=== PATIENT | female | born 1935 | race Caucasian/White ===

== ENCOUNTER 2017-04-20 20:07 | Observation (INO) ==
[2017-04-20] MEDS ORDERED: 0.9 % Sodium Chloride 1,000 ML IVC ONE (20:43)
[2017-04-20] MEDS ORDERED: Ondansetron 4 MG/2 ML VIAL IVP ONE (20:44)
[2017-04-20] MEDS ORDERED: *HR* Morphine 2 MG/ML SYRINGE IVP ONE (20:45)
--- NOTE | 2017-04-20 20:54 | Emergency Department Note ---
Disposition Clinical Impression: Nausea Acute cystitis Qualifiers: Hematuria presence: with hematuria Qualified Code(s): N30.01 - Acute cystitis with hematuria Headache Qualifiers: Headache type: unspecified Headache chronicity pattern: acute headache Intractability: not intractable Qualified Code(s): R51 - Headache Disposition: Admitted As Inpatient Condition: Good Abdominal Pain HPI - General Chief Complaint: ED Abdominal Pain Stated Complaint: abdominal pain Time Seen by Provider: 04/20/17 20:12 Source: patient, EMS Nursing Notes Reviewed: Yes Vital Signs Reviewed: Yes - History of Present Illness HPI Narrative: 81-year-old female presents to the emergency department with concern for urinary tract infection as she consistently has them. However, she also states that she is having worsening left lower quadrant abdominal pain that she has never had before with these. Patient states that she has been feeling chills all throughout. Patient is also reporting some nausea. Patient denies any previous kidney stones. Patient also denies having diverticulitis. Patient reports some vaginal bleeding. Pain Scale: 8 - Related Data Home Medications Medication Instructions Recorded Confirmed Albuterol Sulfate [Proair Hfa] 2 puff IH Q4H PRN 01/31/16 01/31/16 Cholecalciferol (D-3) [Vitamin D] 2,000 unit PO DAILY 01/31/16 01/31/16 Lisinopril [Zestril] 40 mg PO DAILY 01/31/16 01/31/16 Metoprolol [Lopressor] 50 mg PO BID 01/31/16 01/31/16 Quetiapine Fumarate [Seroquel] 50 mg PO HS 01/31/16 01/31/16 amLODIPine [Norvasc] 5 mg PO DAILY 01/31/16 01/31/16 clonazePAM [Klonopin] 0.25 - 0.5 mg PO TID 01/31/16 01/31/16 traMADol [Ultram] 50 mg PO TID PRN 01/31/16 01/31/16 Previous Rx's Medication Instructions Recorded Ciprofloxacin HCl [Cipro] 500 mg PO BID #8 tab 02/02/16 metroNIDAZOLE [Flagyl] 500 mg PO TID #12 tablet 02/02/16 predniSONE [PredniSONE] 10 mg PO DAILY #35 tablet 02/02/16 Ciprofloxacin HCl [Cipro] 500 mg PO BID #14 tab 02/13/16 Omeprazole [PriLOSEC] 20 mg PO DAILY #30 capsule. 02/13/16 Oxycodone HCl/Acetaminophen 1 each PO Q4HR #10 tablet 02/13/16 [Percocet 5-325 mg Tablet] Sucralfate [Carafate] 1 gm PO QIDAC #20 tablet 02/13/16 metroNIDAZOLE [Flagyl] 500 mg PO TID #21 tablet 02/13/16 Hydrocodone/Acetaminophen [[place]ley 1 tab PO Q4H PRN #15 tab 02/14/16 5-325 Tablet] Ciprofloxacin [Cipro] 500 mg PO BID #10 tablet 02/09/17 Ondansetron [Zofran] 8 mg PO Q8HR #9 tablet 02/09/17 Allergies Allergy/AdvReac Type Severity Reaction Status Date / Time codeine Allergy See Verified 01/29/16 23:21 Comments diazepam [From Valium] Allergy See Verified 02/09/17 14:18 Comments Penicillins Allergy See Verified 01/29/16 23:21 Comments Sulfa (Sulfonamide Allergy See Verified 01/29/16 23:21 Antibiotics) Comments diphenhydramine AdvReac Vomiting Verified 02/09/17 14:18 [From Benadryl] All systems ED: reviewed and negative except as stated. Review of Systems: As Per HPI Constitutional: Reports: chills. Denies: fever Cardiovascular: Denies: chest pain Respiratory: Denies: cough, dyspnea Gastrointestinal: Reports: abdominal pain, nausea. Denies: vomiting Genitourinary: Reports: urgency, dysuria, frequency, other (Vaginal bleeding) Abdominal Pain PMH - Past Medical History Medical history: Reports: aortic aneurysm, arthritis, coronary artery disease, diabetes, GERD, GI bleed, hyperlipidemia, hypertension, osteoporosis Female Surgical History: Reports: non-contributory Psychiatric history: Reports: anxiety, depression, panic disorder, other - Social History Smoking status: Never smoker Alcohol use: Reports: none Drug use: Reports: none Physical Exam CONSTITUTIONAL: Alert and oriented X3, well-nourished, 81-year-old female that is well appearing, in no apparent distress HEAD: Normocephalic; atraumatic. EYES: PERRL, no scleral icterus. NOSE: The nose is normal in appearance without rhinorrhea RESP: Normal chest excursion with respiration; breath sounds clear and equal bilaterally; no wheezes, rhonchi, or rales CARD: Regular rhythm, without murmurs, rub or gallop ABD: Non-distended; tenderness in the suprapubic region as well as left lower quadrant, soft,without rigidity, rebound or guarding SKIN: Normal for age and race; warm and dry; no apparent lesions - General General appearance: alert, in no apparent distress Course Vital Signs Temperature 98.0 F 04/20/17 20:11 Pulse Rate 77 04/20/17 20:11 Respiratory Rate 16 04/20/17 20:11 Blood Pressure 170/96 04/20/17 20:11 O2 Sat by Pulse Oximetry 96 04/20/17 20:11 Temperature 98.0 F 04/20/17 20:11 Pulse Rate 77 04/20/17 20:11 Respiratory Rate 14 04/21/17 01:32 Blood Pressure 151/94 04/21/17 01:32 O2 Sat by Pulse Oximetry 96 04/20/17 20:11 Oxygen Delivery Oxygen Delivery Room Air Abdominal Pain - MDM Narrative Medical decision making narrative: 81-year-old female this emergency department with concern for urinary tract infection as well as possible diverticulitis as she has suprapubic tenderness as well as left lower quadrant tenderness. Urinalysis reveals positive leukocyte esterase as well as nitrites and hematuria. We are also obtaining a CT scan of the abdomen and pelvis is very concerned that this may be more than a urinary tract infection. Patient is being given analgesia and Zofran for nausea here in the emergency department. She will also be administered a liter of normal saline. Patient is also complaining of headache. This is an 81-year- old female with no known history of having headaches. We obtained a CT scan of the head without contrast. Urinalysis reveals evidence of urinary tract infection. We have given the patient a gram of Versed here in the emergency department as well as a liter of normal saline. We administered migraine cocktail with Reglan and Benadryl for her headache. This seemed to resolve the symptoms. Admission was offered to this patient as she is elderly with a urinary tract infection and clinically, the patient appears ill. There is concern for possible further deterioration. CT of the head is pending at time of admission. I discussed plan for admission with the family and patient at bedside. They agreed with the plan for admission. Abdomen/Pelvis CT 04/20/17 20:43 IMPRESSION: 1. No acute abdominopelvic abnormality. 2. Sigmoid diverticulosis. No evidence of acute diverticulitis. D/ / Lyndon Reynolds MD / Lyndon Reynolds MD Interpreting Provider: Lyndon Reynolds MD Vital Signs Temperature 98.0 F 04/20/17 20:11 Pulse Rate 77 04/20/17 20:11 Respiratory Rate 16 04/20/17 20:11 Blood Pressure 170/96 04/20/17 20:11 O2 Sat by Pulse Oximetry 96 04/20/17 20:11 Temperature 98.0 F 04/20/17 20:11 Pulse Rate 77 04/20/17 20:11 Respiratory Rate 14 04/21/17 01:32 Blood Pressure 151/94 04/21/17 01:32 O2 Sat by Pulse Oximetry 96 04/20/17 20:11 Oxygen Delivery Oxygen Delivery Room Air - Lab Data Result diagrams: 04/20/17 21:16 04/20/17 21:16 Lab Results 04/20/17 04/20/17 04/20/17 Range/Units 20:22 21:16 21:16 WBC 6.4 (4.3-11.1) K/mcL RBC 4.69 (3.82-4.97) M/mcL Hgb 14.2 (11.5-15.4) g/dL Hct 42.6 (35.3-44.9) % MCV 90.8 (83.0-100.0) fL MCH 30.3 (28.0-33.3) pg MCHC 33.3 (31.6-35.5) g/dL RDW 13.1 (11.5-14.5) % Plt Count 191 (140-400) K/mcL MPV 9.5 (9.4-12.4) fL Immature Gran % 0.2 (0-4) % Seg Neutrophils % 65.5 % Lymphocytes % 27.1 % Monocytes % 5.3 % Eosinophils % 1.4 % Basophils % 0.5 % Neutrophils # 4.2 (1.6-8.9) K/mcL Lymphocytes # 1.7 (0.6-4.6) K/mcL Monocytes # 0.3 (0.0-1.3) K/mcL Eosinophils # 0.1 (0.0-0.6) K/mcL Basophils # 0.0 (0.0-0.2) K/mcL Sodium 134 L (136-145) mEq/L Potassium 4.0 (3.5-4.5) mEq/L Chloride 99 (98-109) mEq/L Carbon Dioxide 22 (19-29) mEq/L BUN 8 (7-20) mg/dL Creatinine 0.79 (0.57-1.11) mg/dL Est GFR ( Amer) > 60 (> 60) Est GFR (Non-Af Amer) > 60 (> 60) BUN/Creatinine Ratio 10 (6-26) Glucose 107 H (70-99) mg/dL Calculated Osmolality 277 L (280-300) Calcium 10.0 (8.6-10.8) mg/dL Total Bilirubin 0.5 (0.2-1.2) mg/dL AST 29 (5-34) Units/L ALT 20 (0-55) Units/L Alkaline Phosphatase 83 (38-126) Units/L Serum Total Protein 8.3 (6.0-8.3) g/dL Albumin 4.1 (3.5-5.0) g/dL Globulin 4.2 H (2.4-3.5) g/dL Albumin/Globulin Ratio 1.0 L (1.1-2.2) Lipase 42 (8-78) Units/L Urine Color Dark Yellow (Yellow) Urine Clarity Clear (Clear) Urine pH 7.0 (5.0-8.0) pH Units Ur Specific [place] 1.007 L (1.010-1.025) Urine Protein Negative (Neg-Trace) mg/dL Urine Glucose (UA) Normal (Normal) mg/dL Urine Ketones Negative (Negative) mg/dL Urine Blood Negative (Negative) Urine Nitrite Positive A (Negative) Urine Bilirubin Negative (Negative) Urine Urobilinogen Normal (Normal) mg/dL Ur Leukocyte Esterase Trace H (Negative) Urine Microscopic RBC 0-3 (0-3) per hpf Urine Microscopic WBC 5-15 H (0-3) per hpf Ur Squamous Epith Cells Few (None-Few) per lpf Urine Bacteria None Seen (None-Few) per hpf Hyaline Casts None Seen (None-Few) per lpf Ur Culture Indicated? YES A (NO) Attestation Statement - Attestation Attestation: I examined this patient and my medical decision-making was reviewed with the Resident Physician. I agree with the documented findings, disposition and treatment plan as described except to the extent set forth below. Abdominal pain , headache, had a cocktail given. CT scan is pending. No focal neurological deficits. CT of the abdomen is without acute findings. She does have nausea and ongoing abdominal pain. Given the findings of nitrite positive urine it would proceed with admission for evaluation of urinary tract infection and treatment with ceftriaxone.
[2017-04-20 21:01] LABS: Bilirubin,Urine Negative (Negative); Blood,Urine Negative (Negative); Clarity,Urine Clear (Clear); Glucose,Urine (UA) Normal (Normal); Ketones,Urine Negative (Negative); Leukocyte Esterase,Urine Trace (Negative); Nitrite,Urine Positive (Negative); Protein,Urine Negative (Neg-Trace); Specific Gravity,Urine 1.007 (1.010-1.025); Urobilinogen,Urine Normal (Normal)
[2017-04-20 21:03] LABS: Bacteria,Urine None Seen per hpf (None-Few); Hyaline Casts,Urine None Seen per lpf (None-Few); RBC,Urine 0-3 per hpf (0-3); Squamous Epithelial Cell,Urine Few per lpf (None-Few)
[2017-04-20 21:05] LABS: Color,Urine Dark Yellow (Yellow)
[2017-04-20 21:28] LABS: Basophils % 0.5 %; Eosinophils # 0.1 K/mcL (0.0-0.6); Eosinophils % 1.4 %; Hematocrit 42.6 % (35.3-44.9); Hemoglobin 14.2 g/dL (11.5-15.4); Immature Granulocytes % 0.2 % (0-4); Lymphocytes # 1.7 K/mcL (0.6-4.6); Lymphocytes % 27.1 %; Mean Corpuscular HGB Conc 33.3 g/dL (31.6-35.5); Mean Corpuscular Hemoglobin 30.3 pg (28.0-33.3); Mean Corpuscular Volume 90.8 fL (83.0-100.0); Mean Platelet Volume 9.5 fL (9.4-12.4); Monocytes # 0.3 K/mcL (0.0-1.3); Monocytes % 5.3 %; Neutrophils # 4.2 K/mcL (1.6-8.9); Platelet Count 191 K/mcL (140-400); Red Blood Count 4.69 M/mcL (3.82-4.97); Red Cell Distribution Width 13.1 % (11.5-14.5); Segmented Neutrophils % 65.5 %
[2017-04-20] MEDS ORDERED: cefTRIAXone 1,000 MG in Water for inj. (sterile) 10 ML IVP ONE (22:16)
[2017-04-20 23:04] LABS: Alanine Aminotransferase 20 Units/L (0-55); Albumin 4.1 g/dL (3.5-5.0); Alkaline Phosphatase 83 Units/L (38-126); Aspartate Amino Transferase 29 Units/L (5-34); BUN/Creatinine Ratio 10 (6-26); Bilirubin,Total 0.5 mg/dL (0.2-1.2); Blood Urea Nitrogen 8 mg/dL (7-20); Carbon Dioxide 22 mEq/L (19-29); Chloride 99 mEq/L (98-109); Globulin 4.2 g/dL (2.4-3.5); Glucose 107 mg/dL (70-99); Lipase 42 Units/L (8-78); Osmolality,Calculated 277 (280-300); Sodium 134 mEq/L (136-145); Total Protein 8.3 g/dL (6.0-8.3); eGFR For African Americans > 60 (> 60); eGFR For Non-African Americans > 60 (> 60)
[2017-04-21] MEDS ORDERED: Metoclopramide 10 MG/2 ML VIAL IVP ONE (00:24)
[2017-04-21] MEDS ORDERED: traMADol 50 MG TABLET PO PRN (03:03)
--- NOTE | 2017-04-21 03:18 | Internal Med History&Physical ---
Date of Encounter: 04/21/17 Time of Encounter: 03:16 Assessment and Plan (1) GERD (gastroesophageal reflux disease) Current visit: Yes Status: Acute We will start PPI. She reports GERD symptoms including heartburn and upper abdominal pain. Qualifiers: Esophagitis presence: without esophagitis Qualified Code(s): K21.9 - Gastro -esophageal reflux disease without esophagitis (2) DVT prophylaxis Current visit: Yes Status: Acute Encourage early ambulation. (3) Acute cystitis Current visit: Yes Status: Acute Urinalysis positive for nitrite and leukocyte esterase. She has typical symptoms of cystitis. We will treat her with ceftriaxone. Follow-up urine culture and sensitivity and adjust antibiotic therapy accordingly. Qualifiers: Hematuria presence: without hematuria Qualified Code(s): N30.00 - Acute cystitis without hematuria (4) Hypertension Current visit: No Status: Chronic Continue with Norvasc. Qualifiers: Hypertension type: essential hypertension Qualified Code(s): I10 - Essential (primary) hypertension Internal Medicine - H&P: HPI Chief complaint: Abdominal pain Admitted From: Home Plans for Post Hospital Care: Home History of present illness: Ms. Moreno is a 81 year old female with past medical history significant for GERD , anxiety and depression who presented to the hospital for lower abdominal pain and dysuria. She has been having several days of abdominal pain however today she noticed severe dysuria described as burning with urination and lower abdominal pain that has progressively gotten worse. Reports associated chills, no aggravating or alleviating factors. Denies subjective fevers. Reports nausea, no vomiting. A 10 point review of systems was negative except as above Past surgical history: Carpal tunnel repair Family history: Patient's father suffered with coronary artery disease, patient' s mother suffered with diabetes Social history: Patient lives at home with her . She never smoked. Denies alcohol or drug use. Past Med Surg Social Fam HX - Past Medical History Medical history: aortic aneurysm, arthritis, coronary artery disease, diabetes, GERD, GI bleed, hyperlipidemia, hypertension, osteoporosis Psychiatric history: anxiety, depression, panic disorder, other - Past Surgical History Surgical History: orthopedic, other, other - Social History Smoking Status: Never smoker Smokeless Tobacco Status: No Alcohol use: none Drug use: none - Family History Mother Living Status: Age at : 75 Cause of : Heart Hx Family Cardiac Disorders: Yes Hx Family Endocrine Disorder: Yes (DM) Father Living Status: Still Living Age at : 84 Cause of : Heart Hx Family Cardiac Disorders: Yes (CABG, Vavle replacement, HTN) Internal Medicine - H&P: Meds Cholecalciferol (D-3) [Vitamin D] 2,000 unit PO DAILY 01/31/16 [History] Lisinopril [Zestril] 40 mg PO DAILY 01/31/16 [History] Metoprolol [Lopressor] 50 mg PO BID 01/31/16 [History] Quetiapine Fumarate [Seroquel] 50 mg PO HS 01/31/16 [History] amLODIPine [Norvasc] 5 mg PO DAILY 01/31/16 [History] clonazePAM [Klonopin] 0.25 - 0.5 mg PO TID 01/31/16 [History] traMADol [Ultram] 50 mg PO TID PRN 01/31/16 [History] Omeprazole [PriLOSEC] 20 mg PO DAILY #30 capsule. 02/13/16 [Rx] Oxycodone HCl/Acetaminophen [Percocet 5-325 mg Tablet] 1 each PO Q4HR #10 tablet 02/13/16 [Rx] Sucralfate [Carafate] 1 gm PO QIDAC #20 tablet 02/13/16 [Rx] Ondansetron [Zofran] 8 mg PO Q8HR #9 tablet 02/09/17 [Rx] 3 Allergy/AdvReac Type Severity Reaction Status Date / Time codeine Allergy See Verified 01/29/16 23:21 Comments diazepam [From Valium] Allergy See Verified 02/09/17 14:18 Comments Penicillins Allergy See Verified 01/29/16 23:21 Comments Sulfa (Sulfonamide Allergy See Verified 01/29/16 23:21 Antibiotics) Comments diphenhydramine AdvReac Vomiting Verified 02/09/17 14:18 [From Benadryl] All Systems PM: A 10-system review of systems was performed and is negative for pertinent findings except as documented above in the HPI. - Constitutional Vitals: Temp Pulse Resp BP Pulse Ox 98.0 F 77 14 151/94 96 04/20/17 20:11 04/20/17 20:11 04/21/17 01:32 04/21/17 01:32 04/20/17 20:11 General appearance: Present: A&O X 3, no acute distress - Eye Eye exam: Present: PERRL, conjuntiva pink, sclera anicteric Pupils: Present: PERRL - Respiratory Respiratory exam: Present: CTAB. Absent: accessory muscle use, rales, rhonchi, wheezes - Cardiovascular Cardiovascular exam: Present: RRR, +S1, +S2. Absent: diastolic murmur, gallop, rubs, systolic murmur - GI/Abdominal GI/Abdominal exam: Present: normal bowel sounds, soft, no peritoneal signs. Absent: distended, tenderness - Extremities Exam Extremities exam: Present: warm, radial pulses palpable and symmetrical. Absent : calf tenderness, cyanotic, pedal edema - Neurological Exam Neurological exam: Present: CN II-XII intact, oriented X3, no focal deficits. Absent: pronater drift, facial droop, speech deficit - Skin Skin exam: Present: dry, intact Internal Med - H&P Results - Labs CBC & Chem 7: 04/20/17 21:16 04/20/17 21:16
[2017-04-21] MEDS ORDERED: Acetaminophen 325 MG TABLET PO PRN (03:25)
[2017-04-21] MEDS ORDERED: Ondansetron 4 MG/2 ML VIAL IVP PRN (03:25)
[2017-04-21] MEDS ORDERED: Naloxone 0.4 MG/ML INJ IVP PRN (03:25)
[2017-04-21] MEDS: *HR* OxyCODONE/APAP 5/325 TABLET PO SCH ×5 (03:31→21:09)
[2017-04-21] MEDS: Sucralfate 1 GM TABLET PO SCH ×4 (07:30→21:10)
[2017-04-21] MEDS: amLODIPine 5 MG TABLET PO SCH (10:29)
[2017-04-21] MEDS: clonazePAM 0.5 MG TABLET PO SCH ×3 (10:30→21:09)
[2017-04-21] MEDS: cefTRIAXone 1,000 MG in Water for inj. (sterile) 10 ML IVP SCH (10:31)
[2017-04-21] MEDS: Lisinopril 20 MG TABLET PO SCH (10:34)
[2017-04-21] MEDS ORDERED: GI Cocktail 40 ML EACH PO ONE (20:26)
--- NOTE | 2017-04-22 00:20 | Event Note ---
Date of Encounter: 04/21/17 Time of Encounter: 14:00 Patient seen and examined. She notes that she is still having abdominal pain and suprapubic burning with urination, c/w UTI. She notes she is having dysphagia and sometimes having trouble swallowing solids and liquids. Food feels "stuck" when she eats and sometimes she has to regurgitate the food. Also complains of sour taste in her mouth Vital signs reviewed, unremarkable Gen: NAD, AAOx3 CVS: RRR Lungs:CTAB Abd: Soft, ND, TTP lower quadrants, normoactive bowel sounds Labs reviewed; UA shows c/w UTI. Imaging showed CT abdomen/pelvis with no acute process 1. UTI 2. GERD 3. Dysphagia Plan: - Continue Rocephin, follow-up urine culture - start PPI, give GI cocktail now, Carafate before meals - esophogram - May need to consult GI in AM pending esophogram results.
[2017-04-22] MEDS: *HR* OxyCODONE/APAP 5/325 TABLET PO SCH ×6 (00:29→20:50)
[2017-04-22 03:01] LABS: Basophils % 0.3 %; Eosinophils # 0.1 K/mcL (0.0-0.6); Eosinophils % 2.3 %; Hematocrit 36.9 % (35.3-44.9); Lymphocytes # 1.8 K/mcL (0.6-4.6); Lymphocytes % 45.2 %; Mean Corpuscular HGB Conc 32.5 g/dL (31.6-35.5); Mean Corpuscular Hemoglobin 30.2 pg (28.0-33.3); Mean Corpuscular Volume 92.7 fL (83.0-100.0); Mean Platelet Volume 9.3 fL (9.4-12.4); Monocytes # 0.3 K/mcL (0.0-1.3); Monocytes % 6.9 %; Neutrophils # 1.8 K/mcL (1.6-8.9); Platelet Count 175 K/mcL (140-400); Red Blood Count 3.98 M/mcL (3.82-4.97); Red Cell Distribution Width 13.5 % (11.5-14.5); Segmented Neutrophils % 45.3 %
[2017-04-22 03:24] LABS: Calcium 8.9 mg/dL (8.6-10.8); Potassium 3.7 mEq/L (3.5-4.5)
[2017-04-22] MEDS: clonazePAM 0.5 MG TABLET PO SCH ×3 (09:18→21:55)
[2017-04-22] MEDS: Sucralfate 1 GM TABLET PO SCH ×4 (09:19→21:55)
[2017-04-22] MEDS: cefTRIAXone 1,000 MG in Water for inj. (sterile) 10 ML IVP SCH (09:19)
[2017-04-22] MEDS: amLODIPine 5 MG TABLET PO SCH (09:19)
[2017-04-22] MEDS: Lisinopril 20 MG TABLET PO SCH (09:19)
[2017-04-22] MEDS: *HR* Morphine 2 MG/ML SYRINGE IVP PRN (20:54)
[2017-04-23] MEDS: *HR* OxyCODONE/APAP 5/325 TABLET PO SCH ×6 (00:28→23:09)
[2017-04-23] MEDS: Temazepam 15 MG CAPSULE PO PRN ×2 (02:10→23:08)
--- NOTE | 2017-04-23 05:09 | Internal Med Progress Note ---
Date of Encounter: 04/22/17 Time of Encounter: 10:07 - Assessment and plan (1) Dysphagia Current Visit: Yes Status: Acute Assessment and plan: Follow-up swallow study *Consult GI in AM Qualifiers: Dysphagia type: unspecified Qualified Code(s): R13.10 - Dysphagia, unspecified (2) UTI (urinary tract infection) Current Visit: Yes Status: Acute Assessment and plan: Continue Rocephin, follow-up cultures. Qualifiers: Urinary tract infection type: acute cystitis Hematuria presence: without hematuria Qualified Code(s): N30.00 - Acute cystitis without hematuria (3) Acute generalized abdominal pain Current Visit: No Status: Acute Assessment and plan: Likely GERD but patient states its generalized. (4) Hypertension Current Visit: No Status: Chronic Assessment and plan: Norvasc Qualifiers: Hypertension type: essential hypertension Qualified Code(s): I10 - Essential (primary) hypertension (5) Acute cystitis Current Visit: Yes Status: Acute Qualifiers: Hematuria presence: without hematuria Qualified Code(s): N30.00 - Acute cystitis without hematuria (6) GERD (gastroesophageal reflux disease) Current Visit: Yes Status: Acute Assessment and plan: Ppi, Qualifiers: Esophagitis presence: without esophagitis Qualified Code(s): K21.9 - Gastro -esophageal reflux disease without esophagitis - Subjective Interval history: No acute events overnight. Dysuria improved. Epigastric pain peristent, had somehwat relief with Carafate. Denies fevers/chills, diarrhea/constipation. - Constitutional Vitals: Temp Pulse Resp BP Pulse Ox 99.0 F 72 17 128/72 94 04/22/17 23:07 04/22/17 23:07 04/22/17 23:07 04/22/17 23:07 04/22/17 23:07 General appearance: Present: A&O X 3, no acute distress Exam: - Eye Eye exam: Present: PERRL, conjuntiva pink, sclera anicteric Pupils: Present: PERRL - Respiratory Respiratory exam: Present: CTAB. Absent: accessory muscle use, rales, rhonchi, wheezes - Cardiovascular Cardiovascular exam: Present: RRR, +S1, +S2. Absent: diastolic murmur, gallop, rubs, systolic murmur - GI/Abdominal GI/Abdominal exam: Present: normal bowel sounds, soft, no peritoneal signs. Absent: distended, tenderness - Extremities Exam Extremities exam: Present: warm, radial pulses palpable and symmetrical. Absent : calf tenderness, cyanotic, pedal edema - Neurological Exam Neurological exam: Present: CN II-XII intact, oriented X3, no focal deficits. Absent: pronater drift, facial droop, speech deficit - Skin Skin exam: Present: dry, intact Internal Medicine: Result - Labs CBC & Chem 7: 04/22/17 02:51 04/22/17 02:51 - Impressions Impressions Barium Swallow X-Ray 04/22/17 08:00 IMPRESSION: 1. Significant gastroesophageal reflux to the thoracic inlet. 2. Tertiary esophageal contractions suggests esophageal dysmotility. D/ / Hugo Orourke MD / Hugo Orourke MD Interpreting Provider: Hugo Orourke MD Consult Discharge Plan - Plan Referrals: Cindy Benitez DO [Primary Care Provider] -
[2017-04-23] MEDS: cefTRIAXone 1,000 MG in Water for inj. (sterile) 10 ML IVP SCH (11:01)
[2017-04-23] MEDS: *HR* Morphine 2 MG/ML SYRINGE IVP PRN (11:02)
[2017-04-23] MEDS: amLODIPine 5 MG TABLET PO SCH (11:03)
[2017-04-23] MEDS: Lisinopril 20 MG TABLET PO SCH (11:03)
[2017-04-23] MEDS: clonazePAM 0.5 MG TABLET PO SCH ×3 (11:03→20:47)
[2017-04-23] MEDS: Sucralfate 1 GM TABLET PO SCH ×4 (11:03→20:47)
--- NOTE | 2017-04-23 11:13 | Gastroenterology Consult Note ---
Date of Encounter: 04/23/17 Time of Encounter: 10:30 - Assessment and plan (1) Dysphagia Current Visit: Yes Status: Acute Assessment and plan: Barium swallow study shows significant gastroesophageal reflux to the thoracic inlet and tertiary esophageal contractions suggestive of esophageal dysmotility. Plan for EGD with possible dilation. If not improved after EGD, consider esophageal manometry as an outpatient. Qualifiers: Dysphagia type: unspecified Qualified Code(s): R13.10 - Dysphagia, unspecified (2) GERD (gastroesophageal reflux disease) Current Visit: Yes Status: Acute Assessment and plan: Continue PPI and plan for EGD today to r/o esophagitis, gastritis, duodenitis, PUD, MW tear, or AVM. Keep pt NPO for now. Qualifiers: Esophagitis presence: without esophagitis Qualified Code(s): K21.9 - Gastro -esophageal reflux disease without esophagitis (3) Sigmoid diverticulosis Current Visit: No Status: Chronic Assessment and plan: Recommend daily fiber supplement. - Time Spent With Patient Total time spent is greater than 50% in coordination of care (as documented) at patient's floor/unit and/or counseling patient: GI History of Present Illness - Data of Consult Patient: new to practice Consult date: 04/23/17 Requesting Physician: Martha Conroy CNP - Consult Narrative Reason for consult: Dysphagia, abdominal pain History of present illness: Ms. Moreno is a 81 year old female with PMHx of GERD, GI bleed, aortic aneurysm, CAD, DM, HLD, HTN, who presented with c/o abdominal pain for several days and dysuria. She states the abdominal pain progressively worsened. She has history of GERD, and was complaining of epigastric pain as well as dysphagia with solids and liquids. Food feels "stuck" when she eats and sometimes she has to regurgitate the food. Barium swallow study shows significant gastroesophageal reflux to the thoracic inlet and tertiary esophageal contractions suggestive of esophageal dysmotility. CT A/P with sigmoid diverticulosis otherwise unremarkable. UA c/w UTI and she was started on Rocephin. Procedures: EGD 12/29/2008 Dr. Jarrett: Reflux esophagitis, negative for Gardner's. NSAIDs: None Anticoagulation: None Past Med Surg Social Fam HX - Past Medical History Medical history: aortic aneurysm, arthritis, coronary artery disease, diabetes, GERD, GI bleed, hyperlipidemia, hypertension, osteoporosis Psychiatric history: anxiety, depression, panic disorder, other - Past Surgical History Surgical History: orthopedic, other, other - Social History Smoking Status: Never smoker Smokeless Tobacco Status: No Alcohol use: none Drug use: none - Family History Mother Living Status: Age at : 75 Cause of : Heart Hx Family Cardiac Disorders: Yes Hx Family Endocrine Disorder: Yes (DM) Father Living Status: Still Living Age at : 84 Cause of : Heart Hx Family Cardiac Disorders: Yes (CABG, Vavle replacement, HTN) - Gastrointestinal Gastrointestinal: Present: as per HPI - Constitutional Constitutional: as per HPI - EENT Eyes: as per HPI Ears: Present: as per HPI Nose, mouth and throat: Present: as per HPI - Cardiovascular Cardiovascular ROS: Present: as per HPI - Respiratory Respiratory IM: Present: as per HPI - Genitourinary Genitourinary: Absent: change in color, Urinary frequency - Neurological ROS Neurological GI: Present: as per HPI - Hematologic/Lymphatic Hematologic/Lymphatic pediatric: Present: as per HPI - Musculoskeletal Musculoskeletal ROS GI: Present: as per HPI - Integumentary Integumentary GI: Present: as per HPI - Psychiatric ROS Psychiatric GI: Present: as per HPI - Endocrine Endocrine IM: Present: as per HPI - Constitutional Vitals: Temp Pulse Resp BP Pulse Ox 98.3 F 63 16 155/72 95 04/23/17 06:44 04/23/17 06:44 04/23/17 06:44 04/23/17 06:44 04/23/17 06:44 General appearance: Present: cooperative, A&O X 3, no acute distress, answers questions appropriately - Head Head exam: Present: atraumatic, normocephalic - Eye Eye exam: Present: normal appearance, sclera anicteric - ENT ENT exam: Present: mucous membranes dry - Neck Neck exam general surgery: Present: normal inspection, trachea midline - Respiratory Respiratory exam: Present: CTAB. Absent: rales, rhonchi - Cardiovascular Cardiovascular exam: Present: RRR, +S1, +S2 - GI/Abdominal GI/Abdominal exam: Present: soft, tenderness (Epigastric and RUQ tenderness with palpation), no peritoneal signs. Absent: distended, firm, guarding - Rectal Rectal exam: Present: deferred - Extremities Exam Extremities exam: Present: warm - Neurological Exam Neurological exam: Present: no focal deficits - Psychiatric Psychiatric exam: Present: normal affect, normal mood - Skin Skin exam: Present: dry, intact, normal color, warm Results - Labs CBC & Chem 7: 04/22/17 02:51 04/22/17 02:51 Labs: Last Result Calcium 8.9 mg/dL (8.6-10.8) 04/22/17 02:51 Entire Visit Hgb 12.0 g/dL (11.5-15.4) D 04/22/17 02:51 Hct 36.9 % (35.3-44.9) 04/22/17 02:51 Total Bilirubin 0.5 mg/dL (0.2-1.2) 04/20/17 21:16 AST 29 Units/L (5-34) 04/20/17 21:16 ALT 20 Units/L (0-55) 04/20/17 21:16 Lipase 42 Units/L (8-78) 04/20/17 21:16 Consult Discharge Plan - Plan Referrals: Cindy Benitez DO [Primary Care Provider] -
--- NOTE | 2017-04-23 12:37 | Anesthesia Evaluation PreOp ---
Date of Encounter: 04/23/17 Time of Encounter: 12:35 - Past History Planned Operation: EGD Cardiac History: HTN, Hyperlipidemia, Other (patient denies CAD) Pulmonary History: Denies Any Significant HX DEBEAKER History: Denies Any Significant HX Other Medical History: GERD, Other (Patient denies Diabetes despite it being listed in chart) Anesthesia History: No Prior Anesthetic Complications, Past Anesthesia (CTR, eye sx, knee scope) Alcohol Use: none Drug use: none Medications and Allergies Cholecalciferol (D-3) [Vitamin D] 2,000 unit PO DAILY 01/31/16 [History] Lisinopril [Zestril] 40 mg PO DAILY 01/31/16 [History] Metoprolol [Lopressor] 50 mg PO BID 01/31/16 [History] Quetiapine Fumarate [Seroquel] 50 mg PO HS 01/31/16 [History] amLODIPine [Norvasc] 5 mg PO DAILY 01/31/16 [History] clonazePAM [Klonopin] 0.25 - 0.5 mg PO TID 01/31/16 [History] traMADol [Ultram] 50 mg PO TID PRN 01/31/16 [History] Omeprazole [PriLOSEC] 20 mg PO DAILY #30 capsule. 02/13/16 [Rx] Atorvastatin Calcium [Lipitor] 20 mg PO DAILY 04/22/17 [History] 3 Allergy/AdvReac Type Severity Reaction Status Date / Time codeine Allergy See Verified 01/29/16 23:21 Comments diazepam [From Valium] Allergy See Verified 02/09/17 14:18 Comments Penicillins Allergy See Verified 01/29/16 23:21 Comments Sulfa (Sulfonamide Allergy See Verified 01/29/16 23:21 Antibiotics) Comments diphenhydramine AdvReac Vomiting Verified 02/09/17 14:18 [From Benadryl] - Meds/Allergy Pre-op Review Medications Reviewed: Yes Allergies Reviewed: Yes Beta Blockers on Current Med List: Yes If Beta Blockers taken, Date/Time (Last Dose taken): 04/22/17 @ 2100 Anesthesia Results - Labs 04/22/17 02:51 04/22/17 02:51 Anesthesia Exam Selected Entries 04/23/17 11:35 Temperature 98.6 F Pulse Rate 76 Respiratory Rate 18 Blood Pressure 113/58 O2 Sat by Pulse Oximetry 91 Weight: 81kg NPO (# of Hours): 8 - HEENT Pupil (Motor): EOMI Mallampati: III Teeth: Poor dentition Oral Opening: Greater than 3 - DEBEAKER LOC: Oriented DEBEAKER Motor: Normal RUE, Normal LUE, Normal RLE, Normal LLE, Normal Face - Cardiac Rhythm: Regular Murmur: None - Pulmonary Breath Sounds: bilateral Clear Respiratory Effort: Symmetrical Anesthesia Assess/Plan ASA Score: 3 Modified Ashu Scale for Level of Consciousness: Cooperative, oriented, and tranquil Anesthetic Plan: MAC Monitoring Plan: Standard Monitors Recovery Plan: Other (agrees to MAC)
[2017-04-23] MEDS ORDERED: *HR* Propofol 200 MG/20 ML VIAL IVP ONE (12:55)
[2017-04-23] MEDS ORDERED: Lidocaine -MPF 2% 2 ML VIAL ONE (13:00)
[2017-04-23] MEDS ORDERED: Nitroglycerin 0.4 MG TAB.SUBL SL PRN (14:45)
[2017-04-23] MEDS ORDERED: *HR* Labetalol 20 MG/4 ML SYRINGE IVP ONE (14:46)
--- NOTE | 2017-04-23 14:46 | Internal Med Progress Note ---
Date of Encounter: 04/23/17 Time of Encounter: 14:42 - Assessment and plan (1) Acute generalized abdominal pain Current Visit: No Status: Acute Assessment and plan: clinically better egd today just returned (2) Hypertension Current Visit: No Status: Chronic Assessment and plan: hypertensive urgency due to med sbeing held for EGD will give labetalol 20 mg now Qualifiers: Hypertension type: essential hypertension Qualified Code(s): I10 - Essential (primary) hypertension (3) Dyslipidemia Current Visit: No Status: Chronic Assessment and plan: chronic (4) Obesity (BMI 30-39.9) Current Visit: No Status: Chronic (5) UTI (urinary tract infection) Current Visit: Yes Status: Acute Assessment and plan: continue antibiotics Qualifiers: Urinary tract infection type: acute cystitis Hematuria presence: without hematuria Qualified Code(s): N30.00 - Acute cystitis without hematuria (6) Chest pain Current Visit: Yes Status: Acute Assessment and plan: chest pain when just returned from Egd ekg no ischemia being given sl nitro will notify GI likely related to EGD doubt perforation but consideration Qualifiers: Chest pain type: other chest pain Qualified Code(s): R07.89 - Other chest pain; R07.8 - Other chest pain - Subjective Interval history: Patient with history of GERD hypertension admitted with lower abdominal pain Patient just came back from EGD and complaining of midsternal chest pain no radiation and no associated sob or sweats ekg no ishemia - Constitutional Vitals: Temp Pulse Resp BP Pulse Ox 97.9 F 85 16 172/92 96 04/23/17 13:56 04/23/17 13:56 04/23/17 13:56 04/23/17 13:56 04/23/17 13:56 General appearance: Present: A&O X 3, no acute distress - Head Head exam: Present: atraumatic, normocephalic - Eye Eye exam: Present: PERRL, conjuntiva pink, sclera anicteric Pupils: Present: PERRL - Neck Neck exam general surgery: Present: supple, trachea midline. Absent: lymphadenopathy - Respiratory Respiratory exam: Present: CTAB. Absent: accessory muscle use, rales, rhonchi, wheezes - Cardiovascular Cardiovascular exam: Present: RRR, +S1, +S2. Absent: diastolic murmur, gallop, rubs, systolic murmur - GI/Abdominal GI/Abdominal exam: Present: normal bowel sounds, soft, no peritoneal signs. Absent: distended, tenderness - Extremities Exam Extremities exam: Present: warm, radial pulses palpable and symmetrical. Absent : calf tenderness, cyanotic, pedal edema Internal Medicine: Result - Labs CBC & Chem 7: 04/22/17 02:51 04/22/17 02:51 Consult Discharge Plan - Plan Referrals: Cindy Benitez DO [Primary Care Provider] -
[2017-04-23] MEDS ORDERED: *HR* Morphine 2 MG/ML SYRINGE IVP ONE (14:57)
[2017-04-23] MEDS ORDERED: *HR* HYDROmorphone 2 MG/ML SYRINGE IVP ONE (15:20)
[2017-04-23] MEDS ORDERED: Ondansetron 4 MG/2 ML VIAL IVP ONE (15:21)
[2017-04-24] MEDS: *HR* OxyCODONE/APAP 5/325 TABLET PO SCH ×3 (00:13→07:43)
[2017-04-24] MEDS: amLODIPine 5 MG TABLET PO SCH (07:44)
[2017-04-24] MEDS: Lisinopril 20 MG TABLET PO SCH (07:44)
[2017-04-24] MEDS: Sucralfate 1 GM TABLET PO SCH (09:11)
[2017-04-24] MEDS: clonazePAM 0.5 MG TABLET PO SCH (09:12)
[2017-04-24] MEDS: cefTRIAXone 1,000 MG in Water for inj. (sterile) 10 ML IVP SCH (09:15)
--- NOTE | 2017-04-24 12:20 | Discharge Summary ---
Date of Encounter: 04/24/17 Time of Encounter: 12:17 - Discharge Diagnosis (1) Acute generalized abdominal pain Priority: Primary Status: Acute Comments: EGD normal (2) Hypertension Priority: Secondary Status: Chronic Qualifiers: Hypertension type: essential hypertension Qualified Code(s): I10 - Essential (primary) hypertension (3) Dyslipidemia Priority: Secondary Status: Chronic Comments: chronic (4) Obesity (BMI 30-39.9) Priority: Secondary Status: Chronic (5) UTI (urinary tract infection) Priority: Secondary Status: Acute Comments: resolving culture no significant growth Qualifiers: Urinary tract infection type: acute cystitis Hematuria presence: without hematuria Qualified Code(s): N30.00 - Acute cystitis without hematuria (6) Chest pain Priority: Secondary Status: Acute Comments: resolved troponin negative ekg normal Qualifiers: Chest pain type: other chest pain Qualified Code(s): R07.89 - Other chest pain; R07.8 - Other chest pain - Discharge Medications Home Medications: Cholecalciferol (D-3) [Vitamin D] 2,000 unit PO DAILY 01/31/16 [History] Lisinopril [Zestril] 40 mg PO DAILY 01/31/16 [History] Metoprolol [Lopressor] 50 mg PO BID 01/31/16 [History] Quetiapine Fumarate [Seroquel] 50 mg PO HS 01/31/16 [History] amLODIPine [Norvasc] 5 mg PO DAILY 01/31/16 [History] clonazePAM [Klonopin] 0.25 - 0.5 mg PO TID 01/31/16 [History] traMADol [Ultram] 50 mg PO TID PRN 01/31/16 [History] Omeprazole [PriLOSEC] 20 mg PO DAILY #30 capsule. 02/13/16 [Rx] Atorvastatin Calcium [Lipitor] 20 mg PO DAILY 04/22/17 [History] Allergies/Adverse Reactions: 3 Allergy/AdvReac Type Severity Reaction Status Date / Time codeine Allergy See Verified 01/29/16 23:21 Comments diazepam [From Valium] Allergy See Verified 02/09/17 14:18 Comments Penicillins Allergy See Verified 01/29/16 23:21 Comments Sulfa (Sulfonamide Allergy See Verified 01/29/16 23:21 Antibiotics) Comments diphenhydramine AdvReac Vomiting Verified 02/09/17 14:18 [From Benadryl] Procedures/tests Complete & Pending: Procedures Performed prior 72 hours Category Date Time Status ECG 12 lead ECG [ECG] Routine Y 04/23/17 14:52 Completed Date of admission: 04/21/17 01:01 Primary care physician: Cindy Benitez DO Consults: 04/23/17 10:45 Consult to Gastroenterology [CONS] Routine Consulting Provider: Mark Landaverde Reason for Consult: Possible GI bleed. Call Completed: No Discharging clinician: Harrison Canas Anticipated date of discharge: 04/24/17 - Patient Status Disposition: Home, Self-Care Overall status at discharge: patient is progressing back to baseline - Discharge Instructions Instructions: Urinary Tract Infection in Women (GEN), Gastroesophageal Reflux Disease (GEN), Upper Gastrointestinal Endoscopy (DC) - Diet and Activity Activity: other Diet: advance to your usual diet Hospital course: Ms. Moreno is a 81 year old female - Time Spent with Patient Total time spent providing and/or coordinating discharge services: - Constitutional Vitals: Temp Pulse Resp BP Pulse Ox 98.1 F 66 16 90/57 95 04/24/17 11:36 04/24/17 11:36 04/24/17 11:36 04/24/17 11:36 04/24/17 11:36 General appearance: Present: A&O X 3, no acute distress
[2017-04-24 12:42] VITALS: BP 135/88
--- NOTE | 2017-04-26 15:49 | Electrocardiograph Report ---
[address] [place], [place] [address] Test Date: 2017-04-23 Pat Name: Christina Moreno Department: 113 Room: [facility] Gender: F Incident Response Coordinator: : 1935 Requested By: Martha Conroy Order Number: [id number] Reading MD: Carlos Manuel Bess Measurements Intervals [place] Rate: 82 P: 95 IA: 160 QRS: 5 QRSD: 90 T: 89 QT: 307 QTc: 346 Interpretive Statements SINUS RHYTHM NONSPECIFIC T-WAVE ABNORMALITY Electronically Signed On 04-26-2017 15:47:29 EST by Carlos Manuel Bess
== END 2017-04-24 12:45 | disposition home or self-care (01) ==
LOC: EMEROO 20:07 → 3BNU 20:07
PROVIDERS: ADMIT Internal Medicine; ATTEND Registered Nurse
PROC: ENDOORB (2017-04-23 14:00)

== ENCOUNTER 2018-02-03 17:42 | Observation (INO) ==
[2018-02-03] MEDS ORDERED: Ondansetron 4 MG/2 ML VIAL IVP ONE (17:55)
--- NOTE | 2018-02-03 18:15 | Emergency Department Note ---
Disposition Clinical Impression: Nausea, Hyponatremia Abdominal pain Qualifiers: Abdominal location: epigastric Qualified Code(s): R10.13 - Epigastric pain UTI (urinary tract infection) Qualifiers: Urinary tract infection type: site unspecified Hematuria presence: with hematuria Qualified Code(s): N39.0 - Urinary tract infection, site not specified Disposition: Admitted As Inpatient Condition: Fair Time of Disposition: 20:34 Abdominal Pain HPI - General Chief Complaint: ED Abdominal Pain Stated Complaint: illness Time Seen by Provider: 02/03/18 17:44 Source: EMS Mode of arrival: EMS Limitations: no limitations Vital Signs Reviewed: Yes - History of Present Illness HPI Narrative: Ms. Moreno is a 82 yo F with a hxo of GERD presents with 3 days of nausea and abdominal pain. She states that the pain is burning in nature, non radiating, she hasn't attempted to resolve the pain with medication but states that "nothing makes it better" She admits to intermittent chills and diaphoresis. She denies vomiting, diarrhea, changes to her bowel and bladder, fevers, CP or SOB. States she has also had several months now of burning in her extremities. States it has been harder for her to get around now because of this burning sensation. Pt Subjective Complaint: abdominal pain Onset (ago): day(s) Consistency: constant Location: epigastric Pain Severity: moderate Pain Scale: 9 Quality: burning Radiation: none Improves with: nothing Worsens with: nothing Associated symptoms: Reports: nausea, chills. Denies: vomiting, diarrhea, fever , constipation, dysuria Treatments prior to arrival: none - Related Data Home Medications Medication Instructions Recorded Confirmed Cholecalciferol (D-3) [Vitamin D] 2,000 unit PO DAILY 01/31/16 02/03/18 Lisinopril [Zestril] 40 mg PO DAILY 01/31/16 02/03/18 Metoprolol [Lopressor] 50 mg PO BID 01/31/16 02/03/18 amLODIPine [Norvasc] 5 mg PO DAILY 01/31/16 02/03/18 clonazePAM [Klonopin] 0.25 - 0.5 mg PO BID PRN 01/31/16 02/03/18 Tramadol HCl [Ultram] 50 mg PO TID PRN 02/03/18 02/03/18 Previous Rx's Medication Instructions Recorded Omeprazole [PriLOSEC] 20 mg PO DAILY #30 capsule. 02/13/16 Allergies Allergy/AdvReac Type Severity Reaction Status Date / Time codeine Allergy See Verified 02/03/18 20:29 Comments diazepam [From Valium] Allergy See Verified 02/03/18 20:29 Comments Penicillins Allergy See Verified 02/03/18 20:29 Comments Sulfa (Sulfonamide Allergy See Verified 02/03/18 20:29 Antibiotics) Comments diphenhydramine AdvReac Vomiting Verified 02/03/18 20:29 [From Benadryl] All systems ED: reviewed and negative except as stated. Constitutional: Reports: chills, weakness, night sweats. Denies: fever Cardiovascular: Denies: chest pain, palpitations, syncope Respiratory: Denies: cough, dyspnea Gastrointestinal: Reports: abdominal pain, nausea. Denies: vomiting, diarrhea, hematemesis, hematochezia Genitourinary: Denies: urgency, dysuria, frequency, hematuria Neurological: Reports: paresthesias (chronic bilateral lower extremity ). Denies: numbness Endocrine: Reports: fatigue Abdominal Pain PMH - Past Medical History Medical history: Reports: aortic aneurysm, arthritis, coronary artery disease, diabetes, GERD, GI bleed, hyperlipidemia, hypertension, osteoporosis Female Surgical History: Reports: orthopedic, other RIG SITE ENGINEER history: Reports: no RIG SITE ENGINEER history Psychiatric history: Reports: anxiety, depression, panic disorder, other - Social History Smoking status: Never smoker Alcohol use: Reports: none Drug use: Reports: none Physical Exam - General Limitations: no limitations General appearance: alert - Head Head exam: atraumatic, normocephalic, normal inspection - Eye Eye exam: Present: EOMI - ENT ENT exam: normal exam, normal oropharynx, mucous membranes moist - Neck Neck exam: Present: normal inspection, full ROM, trachea midline - Chest Chest inspection: Present: normal inspection, symmetric chest wall rise - Respiratory Respiratory exam: Present: normal lung sounds bilaterally - Cardiovascular Cardiovascular exam: Present: regular rate, normal rhythm, normal heart sounds - Abdominal Exam Abdominal exam: Present: soft, Non-Tender. Absent: tenderness, distention, guarding, rebound, rigidity - Extremities Exam Extremities exam: Present: normal inspection, full ROM. Absent: tenderness, pedal edema - Neurological Exam Neurological exam: Present: alert, oriented X3. Absent: motor sensory deficit - Psychiatric Psychiatric exam: Present: normal affect, normal mood - Skin Skin exam: Present: warm, dry, intact, normal color Course Course Narrative: Patient seen and examined. Nausea epigastric pain over the last several days. Abdominal lab work, CT of the abdomen and pelvis ordered. She is somewhat tender upon my exam in the epigastric region. - Reevaluation(s) Reevaluation #1: Patient's lab work shows a hyponatremia. Unsure what this is secondary to. Her glucose is normal. She appears euvolemic on my exam. She denies ever being a smoker and does not have any respiratory symptoms. However a chest x- ray ordered to rule out any large mass. We will admit for workup for hyponatremia. Time: 20:00 Reevaluation #2: I discussed with the hospitalist Dr. Jackson who has accepted patient for admission. Would like a telemetry bed for this patient. Since patient has signs of a possible UTI on urine analysis, we will go ahead and give a dose of Rocephin. Time: 20:32 Vital Signs Temperature 98.4 F 02/03/18 17:45 Pulse Rate 68 02/03/18 17:45 Respiratory Rate 16 02/03/18 17:45 Blood Pressure 180/92 02/03/18 17:45 O2 Sat by Pulse Oximetry 99 02/03/18 17:45 Temperature 97.6 F 02/04/18 19:12 Pulse Rate 86 02/04/18 19:12 Respiratory Rate 16 02/04/18 19:12 Blood Pressure 136/85 02/04/18 19:12 O2 Sat by Pulse Oximetry 97 02/04/18 19:12 Oxygen Delivery Oxygen Delivery Room Air Abdominal Pain - Medical Records Medical records reviewed: Yes I reviewed the patient's medical records. - Lab Data Lab results reviewed: Yes I reviewed the patient's lab results. Result diagrams: 02/03/18 17:55 02/03/18 18:42 Lab Results 02/03/18 02/03/18 02/03/18 Range/Units 17:55 18:21 18:42 WBC 7.2 (4.3-11.1) K/mcL RBC 4.68 (3.82-4.97) M/mcL Hgb 14.1 (11.5-15.4) g/dL Hct 41.3 (35.3-44.9) % MCV 88.2 (83.0-100.0) fL MCH 30.1 (28.0-33.3) pg MCHC 34.1 (31.6-35.5) g/dL RDW 12.6 (11.5-14.5) % Plt Count 228 (140-400) K/mcL MPV 9.4 (9.4-12.4) fL Immature Gran % 0.1 (0-4) % Seg Neutrophils % 70.2 % Lymphocytes % 23.5 % Monocytes % 5.5 % Eosinophils % 0.4 % Basophils % 0.3 % Neutrophils # 5.1 (1.6-8.9) K/mcL Lymphocytes # 1.7 (0.6-4.6) K/mcL Monocytes # 0.4 (0.0-1.3) K/mcL Eosinophils # 0.0 (0.0-0.6) K/mcL Basophils # 0.0 (0.0-0.2) K/mcL Sodium 123 L (136-145) mEq/L Potassium 4.2 (3.5-5.1) mEq/L Chloride 88 L (98-107) mEq/L Carbon Dioxide 26 (23-29) mEq/L BUN 6 L (8-23) mg/dL Creatinine 0.70 (0.60-1.20) mg/dL Est GFR ( Amer) > 60 (> 60) Est GFR (Non-Af Amer) > 60 (> 60) BUN/Creatinine Ratio 9 (6-26) Glucose 120 H (70-105) mg/dL Calculated Osmolality 255 L (280-300) Lactic Acid (0.5-2.2) mmol/L Calcium 10.0 (8.6-10.3) mg/dL Total Bilirubin 0.7 (0.3-1.0) mg/dL Direct Bilirubin 0.2 (0.0-0.2) mg/dL Indirect Bilirubin 0.5 (0.0-1.2) mg/dL AST 23 (13-39) Units/L ALT 20 (7-52) Units/L Alkaline Phosphatase 66 (34-104) Units/L Serum Total Protein 7.5 (6.4-8.9) g/dL Albumin 4.5 (3.5-5.7) g/dL Globulin 3.0 (2.4-3.5) g/dL Albumin/Globulin Ratio 1.5 (1.1-2.2) Lipase 23 (11-82) Units/L Urine Color Yellow (Yellow) Urine Clarity Cloudy A (Clear) Urine pH 7.5 (5.0-8.0) pH Units Ur Specific [place] 1.008 L (1.010-1.025) Urine Protein Trace (Neg-Trace) mg/dL Urine Glucose (UA) Normal (Normal) mg/dL Urine Ketones Negative (Negative) mg/dL Urine Blood Small H (Negative) Urine Nitrite Negative (Negative) Urine Bilirubin Negative (Negative) Urine Urobilinogen Normal (Normal) mg/dL Ur Leukocyte Esterase Large H (Negative) Urine Microscopic RBC 5-15 H (0-3) per hpf Urine Microscopic WBC TNTC H (0-3) per hpf Ur Squamous Epith Cells None Seen (None-Few) per lpf Urine Bacteria Few (None-Few) per hpf Hyaline Casts None Seen (None-Few) per lpf Ur Culture Indicated? YES A (NO) 02/03/18 Range/Units 18:42 WBC (4.3-11.1) K/mcL RBC (3.82-4.97) M/mcL Hgb (11.5-15.4) g/dL Hct (35.3-44.9) % MCV (83.0-100.0) fL MCH (28.0-33.3) pg MCHC (31.6-35.5) g/dL RDW (11.5-14.5) % Plt Count (140-400) K/mcL MPV (9.4-12.4) fL Immature Gran % (0-4) % Seg Neutrophils % % Lymphocytes % % Monocytes % % Eosinophils % % Basophils % % Neutrophils # (1.6-8.9) K/mcL Lymphocytes # (0.6-4.6) K/mcL Monocytes # (0.0-1.3) K/mcL Eosinophils # (0.0-0.6) K/mcL Basophils # (0.0-0.2) K/mcL Sodium (136-145) mEq/L Potassium (3.5-5.1) mEq/L Chloride (98-107) mEq/L Carbon Dioxide (23-29) mEq/L BUN (8-23) mg/dL Creatinine (0.60-1.20) mg/dL Est GFR ( Amer) (> 60) Est GFR (Non-Af Amer) (> 60) BUN/Creatinine Ratio (6-26) Glucose (70-105) mg/dL Calculated Osmolality (280-300) Lactic Acid 1.5 (0.5-2.2) mmol/L Calcium (8.6-10.3) mg/dL Total Bilirubin (0.3-1.0) mg/dL Direct Bilirubin (0.0-0.2) mg/dL Indirect Bilirubin (0.0-1.2) mg/dL AST (13-39) Units/L ALT (7-52) Units/L Alkaline Phosphatase (34-104) Units/L Serum Total Protein (6.4-8.9) g/dL Albumin (3.5-5.7) g/dL Globulin (2.4-3.5) g/dL Albumin/Globulin Ratio (1.1-2.2) Lipase (11-82) Units/L Urine Color (Yellow) Urine Clarity (Clear) Urine pH (5.0-8.0) pH Units Ur Specific [place] (1.010-1.025) Urine Protein (Neg-Trace) mg/dL Urine Glucose (UA) (Normal) mg/dL Urine Ketones (Negative) mg/dL Urine Blood (Negative) Urine Nitrite (Negative) Urine Bilirubin (Negative) Urine Urobilinogen (Normal) mg/dL Ur Leukocyte Esterase (Negative) Urine Microscopic RBC (0-3) per hpf Urine Microscopic WBC (0-3) per hpf Ur Squamous Epith Cells (None-Few) per lpf Urine Bacteria (None-Few) per hpf Hyaline Casts (None-Few) per lpf Ur Culture Indicated? (NO) - Radiology Data Radiology results reviewed: Yes I reviewed the patient's radiology results. Abdomen/Pelvis CT 02/03/18 18:03 IMPRESSION: No acute abdominopelvic abnormality identified. D/ / Timothy Rodriguez MD / Timothy Rodriguez MD Interpreting Provider: Timothy Rodriguez MD Chest X-Ray 02/03/18 19:24 IMPRESSION: No acute process. D/ / Matthew Hernandez MD / Matthew Hernandez MD Interpreting Provider: Matthew Hernandez MD - EKG Data EKG attestation: Yes I reviewed and interpreted this EKG. EKG results narrative: EKG done at 1949 shows normal sinus rhythm with a rate of [address] elevation or depression. Normal axis. Unchanged from prior EKG done 2016.
[2018-02-03 18:46] LABS: Bilirubin,Urine Negative (Negative); Blood,Urine Small (Negative); Clarity,Urine Cloudy (Clear); Color,Urine Yellow (Yellow); Glucose,Urine (UA) Normal (Normal); Ketones,Urine Negative (Negative); Leukocyte Esterase,Urine Large (Negative); Nitrite,Urine Negative (Negative); PH,Urine 7.5 pH Units (5.0-8.0); Protein,Urine Trace mg/dL (Neg-Trace); Specific Gravity,Urine 1.008 (1.010-1.025); Urobilinogen,Urine Normal (Normal)
[2018-02-03 18:50] LABS: Bacteria,Urine Few per hpf (None-Few); Hyaline Casts,Urine None Seen per lpf (None-Few); Squamous Epithelial Cell,Urine None Seen per lpf (None-Few); WBC,Urine TNTC per hpf (0-3)
[2018-02-03 18:58] LABS: Basophils % 0.3 %; Eosinophils % 0.4 %; Hematocrit 41.3 % (35.3-44.9); Hemoglobin 14.1 g/dL (11.5-15.4); Immature Granulocytes % 0.1 % (0-4); Lymphocytes # 1.7 K/mcL (0.6-4.6); Lymphocytes % 23.5 %; Mean Corpuscular HGB Conc 34.1 g/dL (31.6-35.5); Mean Corpuscular Hemoglobin 30.1 pg (28.0-33.3); Mean Corpuscular Volume 88.2 fL (83.0-100.0); Mean Platelet Volume 9.4 fL (9.4-12.4); Monocytes # 0.4 K/mcL (0.0-1.3); Monocytes % 5.5 %; Neutrophils # 5.1 K/mcL (1.6-8.9); Platelet Count 228 K/mcL (140-400); Red Blood Count 4.68 M/mcL (3.82-4.97); Red Cell Distribution Width 12.6 % (11.5-14.5); Segmented Neutrophils % 70.2 %
[2018-02-03] MEDS ORDERED: GI Cocktail 40 ML EACH PO ONE (19:12)
--- NOTE | 2018-02-03 19:12 | Emergency Department Note ---
Disposition Clinical Impression: Abdominal pain, GERD (gastroesophageal reflux disease) Disposition: Still a Patient Forms: ED Satisfaction Letter, Work/School Release General Adult HPI - General Chief complaint: ED Abdominal Pain Stated complaint: illness Time Seen by Provider: 02/03/18 17:44 Source: EMS Mode of arrival: EMS Limitations: no limitations - History of Present Illness Pain Scale: 9 - Related Data Home Medications Medication Instructions Recorded Confirmed Cholecalciferol (D-3) [Vitamin D] 2,000 unit PO DAILY 01/31/16 04/22/17 Lisinopril [Zestril] 40 mg PO DAILY 01/31/16 04/22/17 Metoprolol [Lopressor] 50 mg PO BID 01/31/16 04/22/17 Quetiapine Fumarate [Seroquel] 50 mg PO HS 01/31/16 04/22/17 amLODIPine [Norvasc] 5 mg PO DAILY 01/31/16 04/22/17 clonazePAM [Klonopin] 0.25 - 0.5 mg PO TID 01/31/16 04/22/17 traMADol [Ultram] 50 mg PO TID PRN 01/31/16 04/22/17 Atorvastatin Calcium [Lipitor] 20 mg PO DAILY 04/22/17 04/22/17 Previous Rx's Medication Instructions Recorded Omeprazole [PriLOSEC] 20 mg PO DAILY #30 capsule. 02/13/16 Allergies Allergy/AdvReac Type Severity Reaction Status Date / Time codeine Allergy See Verified 01/29/16 23:21 Comments diazepam [From Valium] Allergy See Verified 02/09/17 14:18 Comments Penicillins Allergy See Verified 01/29/16 23:21 Comments Sulfa (Sulfonamide Allergy See Verified 01/29/16 23:21 Antibiotics) Comments diphenhydramine AdvReac Vomiting Verified 02/09/17 14:18 [From Benadryl] Constitutional: Reports: chills, weakness, night sweats. Denies: fever Cardiovascular: Denies: chest pain, palpitations, syncope Respiratory: Denies: cough, dyspnea Gastrointestinal: Reports: abdominal pain, nausea. Denies: vomiting, diarrhea, hematemesis, hematochezia Genitourinary: Denies: urgency, dysuria, frequency, hematuria Neurological: Reports: paresthesias (chronic bilateral lower extremity ). 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 - Social History Smoking Status: Never smoker Smokeless Tobacco Status: No Alcohol use: Reports: none Drug use: Reports: none Physical Exam - General Limitations: no limitations General appearance: alert Course Vital Signs Temperature 98.4 F 02/03/18 17:45 Pulse Rate 68 02/03/18 17:45 Respiratory Rate 16 02/03/18 17:45 Blood Pressure 180/92 02/03/18 17:45 O2 Sat by Pulse Oximetry 99 02/03/18 17:45 Temperature 98.4 F 02/03/18 17:45 Pulse Rate 68 02/03/18 17:45 Respiratory Rate 16 02/03/18 17:45 Blood Pressure 180/92 02/03/18 17:45 O2 Sat by Pulse Oximetry 99 02/03/18 17:45 Oxygen Delivery Oxygen Delivery Room Air Medical Decision Making - Lab Data Result diagrams: 02/03/18 17:55 Lab Results 02/03/18 02/03/18 Range/Units 17:55 18:21 WBC 7.2 (4.3-11.1) K/mcL RBC 4.68 (3.82-4.97) M/mcL Hgb 14.1 (11.5-15.4) g/dL Hct 41.3 (35.3-44.9) % MCV 88.2 (83.0-100.0) fL MCH 30.1 (28.0-33.3) pg MCHC 34.1 (31.6-35.5) g/dL RDW 12.6 (11.5-14.5) % Plt Count 228 (140-400) K/mcL MPV 9.4 (9.4-12.4) fL Immature Gran % 0.1 (0-4) % Seg Neutrophils % 70.2 % Lymphocytes % 23.5 % Monocytes % 5.5 % Eosinophils % 0.4 % Basophils % 0.3 % Neutrophils # 5.1 (1.6-8.9) K/mcL Lymphocytes # 1.7 (0.6-4.6) K/mcL Monocytes # 0.4 (0.0-1.3) K/mcL Eosinophils # 0.0 (0.0-0.6) K/mcL Basophils # 0.0 (0.0-0.2) K/mcL Urine Color Yellow (Yellow) Urine Clarity Cloudy A (Clear) Urine pH 7.5 (5.0-8.0) pH Units Ur Specific [place] 1.008 L (1.010-1.025) Urine Protein Trace (Neg-Trace) mg/dL Urine Glucose (UA) Normal (Normal) mg/dL Urine Ketones Negative (Negative) mg/dL Urine Blood Small H (Negative) Urine Nitrite Negative (Negative) Urine Bilirubin Negative (Negative) Urine Urobilinogen Normal (Normal) mg/dL Ur Leukocyte Esterase Large H (Negative) Urine Microscopic RBC 5-15 H (0-3) per hpf Urine Microscopic WBC TNTC H (0-3) per hpf Ur Squamous Epith Cells None Seen (None-Few) per lpf Urine Bacteria Few (None-Few) per hpf Hyaline Casts None Seen (None-Few) per lpf Ur Culture Indicated? YES A (NO) Attestation Statement - Attestation Attestation: I examined this patient and my medical decision-making was reviewed with the Resident Physician. I agree with the documented findings, disposition and treatment plan as described except to the extent set forth below. 82-year-old female presents emergency room for chronic abdominal pain. States it is worse over the past day or so. Epigastric left upper quadrant region. History of GERD. She is not taking her Nexium as directed. She states it hurts her stomach. Does not want to take it. She denies vomiting or diarrhea.Problems with her stool. No blackness or redness to her stool. No fevers. States her whole body feels like its burning and is on fire. We will check screening lab work. Check liver function and lipase.
[2018-02-03 19:19] LABS: Alanine Aminotransferase 20 Units/L (7-52); Albumin 4.5 g/dL (3.5-5.7); Albumin/Globulin Ratio 1.5 (1.1-2.2); Alkaline Phosphatase 66 Units/L (34-104); Aspartate Amino Transferase 23 Units/L (13-39); BUN/Creatinine Ratio 9 (6-26); Bilirubin,Direct 0.2 mg/dL (0.0-0.2); Bilirubin,Indirect 0.5 mg/dL (0.0-1.2); Bilirubin,Total 0.7 mg/dL (0.3-1.0); Blood Urea Nitrogen 6 mg/dL (8-23); Carbon Dioxide 26 mEq/L (23-29); Chloride 88 mEq/L (98-107); Glucose 120 mg/dL (70-105); Lipase 23 Units/L (11-82); Osmolality,Calculated 255 (280-300); Potassium 4.2 mEq/L (3.5-5.1); Sodium 123 mEq/L (136-145); Total Protein 7.5 g/dL (6.4-8.9); eGFR For Non-African Americans > 60 (> 60)
[2018-02-03] MEDS ORDERED: cefTRIAXone 2,000 MG in Water for inj. (sterile) 20 ML 20 ML IVP ONE (20:02)
[2018-02-04] MEDS ORDERED: Naloxone 0.4 MG/ML INJ IVP PRN (09:03)
[2018-02-04] MEDS: GI Cocktail 40 ML EACH PO PRN (10:52)
[2018-02-04] MEDS: Mag Hydrox/Al Hydrox/Simeth 30 ML UDC PO PRN (12:51)
[2018-02-04] MEDS ORDERED: Ondansetron 4 MG/2 ML VIAL IVP PRN (14:53)
--- NOTE | 2018-02-04 15:12 | Internal Med History&Physical ---
Date of Encounter: 02/04/18 Time of Encounter: 15:10 Internal Medicine - H&P: HPI Chief complaint: Abdominal discomfort/diffuse burning Admitted From: Emergency Dept History of present illness: Ms. Moreno is a 82 year old female who presents with history of gastroesophageal reflux disease who presents with a abdominal pain which is graded as 5/10 in severity located in the hypochondrial region with radiation down his legs. She states that this is associated with more of a burning like pain. She has also been going to the bathroom a lot with frequent urination. She denies any blood in the urine. She also has complaints of heartburn which seems to be getting worse over the last several days. Denies any marie chest pain or shortness of breath. Past Med Surg Social Fam HX - Past Medical History Medical history: aortic aneurysm, arthritis, coronary artery disease, diabetes, GERD, GI bleed, hyperlipidemia, hypertension, osteoporosis Additional medical history: colitis Psychiatric history: anxiety, depression, panic disorder, other - Past Surgical History Surgical History: orthopedic, other, other Additional surgical history: carpal tunnel, knee scope - Social History Smoking Status: Never smoker Smokeless Tobacco Status: No Alcohol use: none Drug use: none - Family History Mother Living Status: Hx Family Cardiac Disorders: Yes Hx Family Endocrine Disorder: Yes (DM) Father Living Status: Still Living Hx Family Cardiac Disorders: Yes Internal Medicine - H&P: Meds Cholecalciferol (D-3) [Vitamin D] 2,000 unit PO DAILY 01/31/16 [History] Lisinopril [Zestril] 40 mg PO DAILY 01/31/16 [History] Metoprolol [Lopressor] 50 mg PO BID 01/31/16 [History] amLODIPine [Norvasc] 5 mg PO DAILY 01/31/16 [History] clonazePAM [Klonopin] 0.25 - 0.5 mg PO BID PRN 01/31/16 [History] Omeprazole [PriLOSEC] 20 mg PO DAILY #30 capsule. 02/13/16 [Rx] Tramadol HCl [Ultram] 50 mg PO TID PRN 02/03/18 [History] 3 Allergy/AdvReac Type Severity Reaction Status Date / Time codeine Allergy See Verified 02/03/18 20:29 Comments diazepam [From Valium] Allergy See Verified 02/03/18 20:29 Comments Penicillins Allergy See Verified 02/03/18 20:29 Comments Sulfa (Sulfonamide Allergy See Verified 02/03/18 20:29 Antibiotics) Comments diphenhydramine AdvReac Vomiting Verified 02/03/18 20:29 [From Benadryl] All Systems PM: A 10-system review of systems was performed and is negative for pertinent findings except as documented above in the HPI. - Constitutional Vitals: Temp Pulse Resp BP Pulse Ox 98.7 F 70 16 123/68 95 02/04/18 11:47 02/04/18 11:47 02/04/18 11:47 02/04/18 11:47 02/04/18 11:47 Exam: GENERAL: Alert, moderate distress, cooperative EYES: PERRLA, EOMI EARS: External ears normal, canals clear OROPHARYNX: Lips, mucosa, and tongue normal. Teeth and gums normal. Oropharynx normal. NECK: No jugulovenous distention, No carotid bruits, Carotid pulse normal contour, Supple LUNGS: Lungs clear to auscultation, Good diaphragmatic excursion CARDIAC: Normal S1 and S2; no rubs, murmurs, or gallops ABDOMEN: Abdomen soft, mild tenderness to palpation in the suprapubic region EXTREMITIES: Extremities normal, no deformities, edema, clubbing or skin discoloration. Good capillary refill., No ulcers NEURO: Gait normal. Reflexes normal and symmetric. Sensation grossly intact, Cranial nerves II-XII intact PULSES: 2+ radial, 2+ carotid Rest of the exam is non contributory Internal Med - H&P Results - Labs CBC & Chem 7: 02/03/18 17:55 02/03/18 18:42 Labs: Cardiac Enzymes 02/04/18 Range/Units 09:15 Troponin I < 0.03 (< 0.04) ng/mL - EKG Data Interpretation IM: normal EKG - Assessment and plan (1) UTI (urinary tract infection) Current Visit: Yes Status: Acute Assessment and plan: Patient's UA was found to be abnormal and urine culture is pending. We have already started Rocephin. She does not have significant white count but does have symptoms consistent with UTI. Further titration of antibiotics as per culture and sensitivities Qualifiers: Urinary tract infection type: site unspecified Hematuria presence: with hematuria Qualified Code(s): N39.0 - Urinary tract infection, site not specified; R31.9 - Hematuria, unspecified (2) GERD (gastroesophageal reflux disease) Current Visit: Yes Status: Acute Assessment and plan: Increase to twice a day PPI. Trial of Maalox and GI cocktail. He does have a history of hiatal hernia and will need outpatient follow-up with gastroenterology. Qualifiers: Esophagitis presence: without esophagitis Qualified Code(s): K21.9 - Gastro -esophageal reflux disease without esophagitis (3) Nausea Current Visit: Yes Status: Acute Assessment and plan: Most likely as a result of UTI in addition to ongoing reflux. When necessary ondansetron Gradual advancement of diet - Time Spent With Patient Total time spent is greater than 50% in coordination of care (as documented) at patient's floor/unit and/or counseling patient: 25 - 35 minutes
[2018-02-04] MEDS: *HR* Heparin 5,000 UNIT/ML VIAL SQ SCH (19:31)
[2018-02-05 01:24] LABS: Basophils % 0.2 %; Eosinophils % 0.3 %; Hemoglobin 14.1 g/dL (11.5-15.4); Immature Granulocytes % 0.2 % (0-4); Lymphocytes # 1.8 K/mcL (0.6-4.6); Lymphocytes % 30.5 %; Mean Corpuscular HGB Conc 35.3 g/dL (31.6-35.5); Mean Corpuscular Hemoglobin 30.5 pg (28.0-33.3); Mean Corpuscular Volume 86.4 fL (83.0-100.0); Mean Platelet Volume 9.1 fL (9.4-12.4); Monocytes # 0.5 K/mcL (0.0-1.3); Monocytes % 8.7 %; Neutrophils # 3.5 K/mcL (1.6-8.9); Platelet Count 227 K/mcL (140-400); Red Blood Count 4.63 M/mcL (3.82-4.97); Red Cell Distribution Width 12.5 % (11.5-14.5); Segmented Neutrophils % 60.1 %
[2018-02-05] MEDS: traMADol 50 MG TABLET PO PRN ×2 (01:34→12:32)
[2018-02-05] MEDS: amLODIPine 5 MG TABLET PO SCH ×2 (01:34→08:11)
[2018-02-05 01:47] LABS: BUN/Creatinine Ratio 17 (6-26); Blood Urea Nitrogen 12 mg/dL (8-23); Calcium 9.3 mg/dL (8.6-10.3); Carbon Dioxide 24 mEq/L (23-29); Chloride 85 mEq/L (98-107); Glucose 116 mg/dL (70-105); Osmolality,Calculated 251 (280-300); Potassium 3.4 mEq/L (3.5-5.1); Sodium 120 mEq/L (136-145); eGFR For Non-African Americans > 60 (> 60)
[2018-02-05] MEDS: *HR* Heparin 5,000 UNIT/ML VIAL SQ SCH ×2 (07:14→17:15)
[2018-02-05] MEDS: Lisinopril 20 MG TABLET PO SCH (08:11)
[2018-02-05] MEDS: GI Cocktail 40 ML EACH PO PRN ×2 (08:32→16:52)
[2018-02-05] MEDS ORDERED: 0.9 % Sodium Chloride 1,000 ML IVC SCH ×2 (10:15→11:23)
--- NOTE | 2018-02-05 15:56 | Internal Med Progress Note ---
<Roe Marie - Last Filed: 02/05/18 18:23> Hospitalist Progress Note - Encounter Date of Encounter: 02/05/18 Time of Encounter: 10:30 - Subjective Interval History: Ms. Moreno is a 80-year-old female with a past medical history of GERD, hiatal hernia, UTI, or dysphagia, acute cystitis, dyslipidemia, hypertension was admitted to the floor because of abdominal pain. She has had multiple admissions to the hospital in the past because of belly pain. During this episode she endorses the belly pain began a few days ago, was non-radiating in nature. Patient associates no correlation of belly pain with meals. She was admitted for the similar reasons was in March 2017 when patient was endorsing left lower quadrant pain with fever chills with nausea. Patient has no history of kidney stones or history of any diverticulitis. - Exam Vitals: Temp Pulse Resp BP Pulse Ox 98.6 F 61 16 139/77 95 02/05/18 15:07 02/05/18 15:07 02/05/18 15:07 02/05/18 15:07 02/05/18 15:07 Exam: GENERAL: Alert, moderate distress, cooperative LUNGS: Lungs clear to auscultation, Good diaphragmatic excursion CARDIAC: Normal S1 and S2; no rubs, murmurs, or gallops ABDOMEN: Abdomen soft, mild tenderness to palpation in the suprapubic region EXTREMITIES: Extremities normal, no deformities, edema, clubbing or skin discoloration. Good capillary refill., No ulcers NEURO: Gait normal. Reflexes normal and symmetric. Sensation grossly intact, Cranial nerves II-XII intact PULSES: 2+ radial, 2+ carotid Rest of the exam is non contributory - Assessment and Plan (1) Hyponatremia Current Visit: Yes Status: Acute Assessment and Plan: -likely SIADH, Secondary to poor oral intake, patient uses lisinopril for blood pressure control. -Patient came in with a sodium of 123> 120 > 120 >121 -Urine osmolality to 251, urine osmolality 252, Urine Na 242 - Currently on fluid restriction 1500 mL's per day. Na q4h (2) Abdominal pain Current Visit: Yes Status: Acute Assessment and Plan: -Likely due to history of GERD. Patient has had multiple admissions in the past for the same reason. Last EGD in 2016 showed benign-appearing intrinsic stenosis which was dilated with a balloon dilator to 16.5 mm. There was also evidence of mild inflammation in the stomach -On physical exam patient endorsed generalized abdominal tenderness. -Currently on PPI twice a day and GI cocktail. GI has been consulted (3) UTI (urinary tract infection) Current Visit: Yes Status: Acute Assessment and Plan: - patient has a Hx of UTI, has had multiple admissions in the past for her UTI -she endorses suprapubic pain on palpation, but has no WBC - currently on macrobid 100mg BID, Urine culture pending because the first one was contaminated DVT Prophylaxis: On subcutaneous heparin. - Time Spent with Patient Total time spent is greater than 50% in coordination of care (as documented) at patient's floor/unit and/or counseling patient: Internal Medicine: Result - Labs CBC & Chem 7: 02/05/18 00:27 02/05/18 15:43 Labs: Short CBC 02/05/18 Range/Units 00:27 WBC 5.9 (4.3-11.1) K/mcL Hgb 14.1 (11.5-15.4) g/dL Hct 40.0 (35.3-44.9) % Plt Count 227 (140-400) K/mcL Neutrophils # 3.5 (1.6-8.9) K/mcL BMP 02/05/18 02/05/18 00:27 11:57 Sodium 120 L* 120 L* Potassium 3.4 L Chloride 85 L Carbon Dioxide 24 BUN 12 Creatinine 0.70 Glucose 116 H Calcium 9.3 Cardiac Enzymes 02/04/18 Range/Units 21:46 Troponin I < 0.03 (< 0.04) ng/mL Consult Discharge Plan - Plan Referrals: Cindy Benitez DO [Primary Care Provider] - <Joel Sam - Last Filed: 02/05/18 18:44> Hospitalist Progress Note - Encounter Date of Encounter: 02/05/18 - Exam Vitals: Temp Pulse Resp BP Pulse Ox 98.6 F 61 16 139/77 95 02/05/18 15:07 02/05/18 15:07 02/05/18 15:07 02/05/18 15:07 02/05/18 15:07 - Assessment and Plan (1) UTI (urinary tract infection) Current Visit: Yes Status: Acute (2) Nausea Current Visit: Yes Status: Acute (3) GERD (gastroesophageal reflux disease) Current Visit: Yes Status: Acute (4) Abdominal pain Current Visit: Yes Status: Acute (5) Diet-controlled type 2 diabetes mellitus Current Visit: No Status: Chronic (6) Hypertension Current Visit: No Status: Chronic (7) Coronary artery disease, non-occlusive Current Visit: No Status: Chronic - Time Spent with Patient Total time spent is greater than 50% in coordination of care (as documented) at patient's floor/unit and/or counseling patient: Internal Medicine: Result - Labs CBC & Chem 7: 02/05/18 00:27 02/05/18 15:43 Labs: Short CBC 02/05/18 Range/Units 00:27 WBC 5.9 (4.3-11.1) K/mcL Hgb 14.1 (11.5-15.4) g/dL Hct 40.0 (35.3-44.9) % Plt Count 227 (140-400) K/mcL Neutrophils # 3.5 (1.6-8.9) K/mcL BMP 02/05/18 02/05/18 02/05/18 00:27 11:57 15:43 Sodium 120 L* 120 L* 121 L Potassium 3.4 L Chloride 85 L Carbon Dioxide 24 BUN 12 Creatinine 0.70 Glucose 116 H Calcium 9.3 Cardiac Enzymes 02/04/18 Range/Units 21:46 Troponin I < 0.03 (< 0.04) ng/mL - Attending Attestation I examined this patient and my medical decision-making was reviewed with the Resident Physician on 02/05/18. I agree with the documented findings, disposition and treatment plan as described except to the extent set forth below. Ms Moreno is currently in observation for abdominal pain and possible UTI. She remains moderate to high risk Ms Moreno is complaining of continued abdominal pain. She says it started when she began Neurontin - after one pill she had pain. No fever or chills. Says she has had diarrhea. No travel. No abx. Exam alert Resting comfortably Mucus membranes dry Heart reg Lungs clear ABd soft. Increased bowel sounds. Diffuse tenderness worse in LUQ area. No peritoneal signs. No edema I/P 1. Abd pain - ? related to GERD or UTI. 2. Probable UTI Further diagnoses and plan as above. <Roe Marie - Last Filed: 02/05/18 18:23> (2) Abdominal pain Qualifiers: Abdominal location: epigastric Qualified Code(s): R10.13 - Epigastric pain (3) UTI (urinary tract infection) Qualifiers: Urinary tract infection type: site unspecified Hematuria presence: with hematuria Qualified Code(s): N39.0 - Urinary tract infection, site not specified <Joel Sam - Last Filed: 02/05/18 18:44> (1) UTI (urinary tract infection) Qualifiers: Urinary tract infection type: acute cystitis Hematuria presence: with hematuria Qualified Code(s): N30.01 - Acute cystitis with hematuria (3) GERD (gastroesophageal reflux disease) Qualifiers: Esophagitis presence: without esophagitis Qualified Code(s): K21.9 - Gastro- esophageal reflux disease without esophagitis (4) Abdominal pain Qualifiers: Abdominal location: left upper quadrant Qualified Code(s): R10.12 - Left upper quadrant pain (6) Hypertension Qualifiers: Hypertension type: essential hypertension Qualified Code(s): I10 - Essential (primary) hypertension
[2018-02-05] MEDS: Melatonin 3 MG TABLET PO PRN (22:05)
[2018-02-06 00:20] LABS: Bilirubin,Urine Negative (Negative); Blood,Urine Negative (Negative); Clarity,Urine Clear (Clear); Color,Urine Yellow (Yellow); Glucose,Urine (UA) Normal (Normal); Ketones,Urine Negative (Negative); Leukocyte Esterase,Urine Negative (Negative); Nitrite,Urine Negative (Negative); Protein,Urine Negative (Neg-Trace); Specific Gravity,Urine 1.008 (1.010-1.025); Urobilinogen,Urine Normal (Normal)
[2018-02-06 01:36] LABS: Basophils % 0.2 %; Eosinophils % 0.7 %; Hematocrit 36.8 % (35.3-44.9); Hemoglobin 12.8 g/dL (11.5-15.4); Immature Granulocytes % 0.4 % (0-4); Lymphocytes # 1.4 K/mcL (0.6-4.6); Lymphocytes % 25.3 %; Mean Corpuscular HGB Conc 34.8 g/dL (31.6-35.5); Mean Corpuscular Hemoglobin 30.5 pg (28.0-33.3); Mean Corpuscular Volume 87.6 fL (83.0-100.0); Mean Platelet Volume 9.2 fL (9.4-12.4); Monocytes # 0.5 K/mcL (0.0-1.3); Monocytes % 9.7 %; Neutrophils # 3.4 K/mcL (1.6-8.9); Platelet Count 199 K/mcL (140-400); Red Cell Distribution Width 12.7 % (11.5-14.5); Segmented Neutrophils % 63.7 %
[2018-02-06 01:42] LABS: BUN/Creatinine Ratio 17 (6-26); Blood Urea Nitrogen 12 mg/dL (8-23); Calcium 9.1 mg/dL (8.6-10.3); Carbon Dioxide 27 mEq/L (23-29); Chloride 91 mEq/L (98-107); Glucose 121 mg/dL (70-105); Osmolality,Calculated 257 (280-300); Potassium 3.8 mEq/L (3.5-5.1); Sodium 123 mEq/L (136-145); eGFR For Non-African Americans > 60 (> 60)
[2018-02-06] MEDS: *HR* Heparin 5,000 UNIT/ML VIAL SQ SCH ×2 (05:48→18:23)
[2018-02-06] MEDS ORDERED: Nitrofurantoin (BID) 100 MG CAPSULE PO SCH (08:00)
--- NOTE | 2018-02-06 08:48 | Gastroenterology Consult Note ---
<Jeffery Joseph - Last Filed: 02/06/18 09:03> Date of Encounter: 02/06/18 Time of Encounter: 08:46 - Assessment and plan (1) Abdominal pain Current Visit: Yes Status: Acute Assessment and plan: Presented with generalized abdominal pain Known history of GERD; multiple prior admissions with similar complaints EGD in 2017: benign-appearing intrinsic stenosis which was dilated with a balloon dilator to 16.5 mm; evidence of mild inflammation in the stomach - CT abd/pel on 02/03/18 demonstrated no acute findings - Hb is stable at 12.8 - Currently on regular diet Plan: - GI cocktail 40 ml PO Q6 PRN - Maalox plus 30ml PO Q6 PRN - Protonix 40 mg IV Qualifiers: Abdominal location: left upper quadrant Qualified Code(s): R10.12 - Left upper quadrant pain (2) GERD (gastroesophageal reflux disease) Current Visit: Yes Status: Acute Assessment and plan: Patient has a known history of GERD - Multiple prior admissions with similar complaints - Takes prilosec 20 mg at home - Currently on IV protonix and GI cocktail Qualifiers: Esophagitis presence: without esophagitis Qualified Code(s): K21.9 - Gastro -esophageal reflux disease without esophagitis (3) UTI (urinary tract infection) Current Visit: Yes Status: Acute Assessment and plan: - UA demonstrated likely UTI - Macrobid 100 mg BID - Management per primary team Qualifiers: Urinary tract infection type: acute cystitis Hematuria presence: with hematuria Qualified Code(s): N30.01 - Acute cystitis with hematuria (4) Hyponatremia Current Visit: Yes Status: Acute Assessment and plan: - Management per primary team - Time Spent With Patient Total time spent is greater than 50% in coordination of care (as documented) at patient's floor/unit and/or counseling patient: GI History of Present Illness - Data of Consult Requesting Physician: Joel Sam DO - Consult Narrative Reason for consult: Abdominal pain, GERD History of present illness: Ms. Moreno is an 82 year old female with a PMH of aortic aneurysm, arthritis, CAD , DM, GERD, GI bleed, HLD, HTN, osteoporosis who presented to [facility] ED on with the chief complaint of generalized abdominal pain and nausea of 3 days duration. Pain was located in the hypochondrial region. She described her pain as burning in character, rated 5/10. No exacerbating/relieving factors. She reported worsening heartburn that was worsening over the course of several days. She also complained of increased frequency of urination. Upon arrival, patients vital signs were significant for an elevated blood pressure at 180/ 92. All other vitals were within normal limits. Laboratory analysis demonstrated hyponatremia at 123 and a low osmolality at 255. UA demonstrated likely UTI. Patient was started on macrobid, protonix, and a GI cocktail. Patient was seen and examined at bedside this morning; she reports that her abdominal pain is present in the LUQ and epigastric region. She notes that her pain has somewhat improved since her admission. The GI cocktail she is taking does offer some relief. Patient also reports diarrhea since 8 am this morning, as well as significant nausea that prevents her from eating. She denies vomiting, fever, chills, cheat pain, shortness of breath, and melena. She has no further complaints. Past Med Surg Social Fam HX - Past Medical History Medical history: aortic aneurysm, arthritis, coronary artery disease, diabetes, GERD, GI bleed, hyperlipidemia, hypertension, osteoporosis Additional medical history: colitis Psychiatric history: anxiety, depression, panic disorder, other - Past Surgical History Surgical History: orthopedic, other, other Additional surgical history: carpal tunnel, knee scope - Social History Smoking Status: Never smoker Smokeless Tobacco Status: No Alcohol use: none Drug use: none - Family History Mother Living Status: Hx Family Cardiac Disorders: Yes Hx Family Endocrine Disorder: Yes (DM) Father Living Status: Still Living Hx Family Cardiac Disorders: Yes - Gastrointestinal Gastrointestinal: Present: as per HPI, abdominal pain (Tenderness to palpation in the LUQ and epigastric region), change in bowel habits, diarrhea, dyspepsia, heartburn, nausea. Absent: bloating, coffee ground emesis, constipation, hematemesis, hematochezia, melena, vomiting - Constitutional Constitutional: as per HPI, no anorexia, no fatigue, no fever(s), no weight gain , no weight loss - EENT Eyes: as per HPI Ears: Present: as per HPI Nose, mouth and throat: Present: as per HPI - Cardiovascular Cardiovascular ROS: Present: as per HPI. Absent: chest pain, irregular heart rhythm - Respiratory Respiratory IM: Present: as per HPI. Absent: cough, dyspnea - Genitourinary Genitourinary: Present: Urinary frequency (complains of increased frequency; currently being treated for a UTI) - Neurological ROS Neurological GI: Present: as per HPI. Absent: weakness - Musculoskeletal Musculoskeletal ROS GI: Present: as per HPI, back pain (Complains of back pain secondary to degenerative disc disease) - Integumentary Integumentary GI: Absent: jaundice, pruritis, rash - Psychiatric ROS Psychiatric GI: Present: as per HPI. Absent: anxiety - Endocrine Endocrine IM: Present: as per HPI. Absent: fatigue - Constitutional Vitals: Temp Pulse Resp BP Pulse Ox 98.2 F 67 18 144/83 96 02/06/18 06:35 02/06/18 06:35 02/06/18 06:35 02/06/18 06:35 02/06/18 06:35 General appearance: Present: cooperative, A&O X 3, no acute distress, answers questions appropriately - Head Head exam: Present: atraumatic, normocephalic - Eye Eye exam: Present: normal appearance, sclera anicteric - ENT ENT exam: Present: mucous membranes moist, normal exam - Neck Neck exam general surgery: Present: normal inspection, trachea midline - Respiratory Respiratory exam: Present: CTAB. Absent: rales, rhonchi, wheezes - Cardiovascular Cardiovascular exam: Present: RRR, +S1, +S2. Absent: bradycardia, tachycardia - GI/Abdominal GI/Abdominal exam: Present: normal bowel sounds, tenderness (Tenderness to palpation in the LUQ and epigastric region). Absent: firm, guarding - Rectal Rectal exam: Present: deferred - Extremities Exam Extremities exam: Present: normal inspection, warm. Absent: calf tenderness - Neurological Exam Neurological exam: Present: no focal deficits - Psychiatric Psychiatric exam: Present: normal affect, normal mood - Skin Skin exam: Present: dry, intact, normal color, warm Results - Labs CBC & Chem 7: 02/06/18 00:35 02/06/18 00:35 Labs: Last Result Calcium 9.1 mg/dL (8.6-10.3) 02/06/18 00:35 Troponin I < 0.03 ng/mL (< 0.04) 02/04/18 21:46 Entire Visit Hgb 12.8 g/dL (11.5-15.4) 02/06/18 00:35 Hct 36.8 % (35.3-44.9) 02/06/18 00:35 Total Bilirubin 0.7 mg/dL (0.3-1.0) 02/03/18 18:42 AST 23 Units/L (13-39) 02/03/18 18:42 ALT 20 Units/L (7-52) 02/03/18 18:42 Lipase 23 Units/L (11-82) 02/03/18 18:42 Consult Discharge Plan - Plan Referrals: Cindy Benitez DO [Primary Care Provider] - <Anahy Young - Last Filed: 02/06/18 18:21> Date of Encounter: 02/06/18 Time of Encounter: 15:00 - Time Spent With Patient Total time spent is greater than 50% in coordination of care (as documented) at patient's floor/unit and/or counseling patient: GI History of Present Illness - Data of Consult Requesting Physician: Joel Sam DO - Consult Narrative History of present illness: Ms. Moreno is a 82 year old female - Constitutional Vitals: Temp Pulse Resp BP Pulse Ox 98.2 F 69 16 149/75 94 02/06/18 06:35 02/06/18 10:28 02/06/18 10:28 02/06/18 10:28 02/06/18 10:28 Results - Labs CBC & Chem 7: 02/06/18 00:35 02/06/18 16:49 Labs: Last Result Calcium 9.1 mg/dL (8.6-10.3) 02/06/18 00:35 Troponin I < 0.03 ng/mL (< 0.04) 02/04/18 21:46 Entire Visit Hgb 12.8 g/dL (11.5-15.4) 02/06/18 00:35 Hct 36.8 % (35.3-44.9) 02/06/18 00:35 Total Bilirubin 0.7 mg/dL (0.3-1.0) 02/03/18 18:42 AST 23 Units/L (13-39) 02/03/18 18:42 ALT 20 Units/L (7-52) 02/03/18 18:42 Lipase 23 Units/L (11-82) 02/03/18 18:42 - Attending Attestation I examined this patient and my medical decision-making was reviewed with the Resident Physician. I agree with the documented findings, disposition and treatment plan as described except to the extent set forth below. Seen with Dr. Joseph agree with his assessment and plan patient it 82-year-old female with upper abdominal pain does have a history of GERD. Patient does has mild tenderness in the upper abdomen. Assessment abdominal pain nonspecific but rule out gallbladder etiology. Patient not interested in an EGD. Recommendation gallbladder ultrasound.
[2018-02-06] MEDS: GI Cocktail 40 ML EACH PO PRN (09:25)
[2018-02-06] MEDS: Lisinopril 20 MG TABLET PO SCH (09:25)
[2018-02-06] MEDS: amLODIPine 5 MG TABLET PO SCH (09:25)
[2018-02-06] MEDS: Pantoprazole 40 MG VIAL IVP SCH (09:25)
[2018-02-06] MEDS: traMADol 50 MG TABLET PO PRN ×2 (14:29→20:18)
--- NOTE | 2018-02-06 14:47 | Internal Med Progress Note ---
<Roe Marie - Last Filed: 02/06/18 17:10> Hospitalist Progress Note - Encounter Date of Encounter: 02/06/18 Time of Encounter: 10:45 - Subjective Interval History: 02/06 no acute events overnight. Patient has had 3 episodes of non-bloody diarrhea this AM. She endorses her abdominal pain is better as compared to yesterday. Patient takes tramadol for her back pain and has been without any medication, for the past 4 weeks. It could be possible that she might be withdrawing from her chronic opiate intake, and is manifesting with belly pain and diarrhea episodes. She has not put back on tramadol starting yesterday. 02/05 Ms. Moreno is a 80-year-old female with a past medical history of GERD, hiatal hernia, UTI, or dysphagia, acute cystitis, dyslipidemia, hypertension was admitted to the floor because of abdominal pain. She has had multiple admissions to the hospital in the past because of belly pain. During this episode she endorses the belly pain began a few days ago, was non-radiating in nature. Patient associates no correlation of belly pain with meals. She was admitted for the similar reasons was in March 2017 when patient was endorsing left lower quadrant pain with fever chills with nausea. Patient has no history of kidney stones or history of any diverticulitis. - Exam Vitals: Temp Pulse Resp BP Pulse Ox 98.2 F 69 16 149/75 94 02/06/18 06:35 02/06/18 10:28 02/06/18 10:28 02/06/18 10:28 02/06/18 10:28 Exam: GENERAL: Alert, moderate distress, cooperative LUNGS: Lungs clear to auscultation, Good diaphragmatic excursion CARDIAC: Normal S1 and S2; no rubs, murmurs, or gallops ABDOMEN: Abdomen soft, mild tenderness to palpation in the suprapubic region EXTREMITIES: Extremities normal, no deformities, edema, clubbing or skin discoloration. Good capillary refill., No ulcers NEURO: Gait normal. Reflexes normal and symmetric. Sensation grossly intact, Cranial nerves II-XII intact PULSES: 2+ radial, 2+ carotid Rest of the exam is non contributory - Assessment and Plan (1) Hyponatremia Current Visit: Yes Status: Acute Assessment and Plan: - likely secondary to poor oral intake, patient uses lisinopril for blood pressure control. -Patient was admitted with a sodium of 123> 120 > 120 >121> 123 -Urine osmolality to 251, urine osmolality 252, Urine Na 24.2 on admission, repeat Urine workup, Cortisol and TSH pending - Currently on 1g NaCl tablets BID, continue to monitor (2) Abdominal pain Current Visit: Yes Status: Acute Assessment and Plan: - Multifactorial : Likely due to history of GERD. Patient has had multiple admissions in the past for the same reason. Last EGD in 2017 showed benign- appearing intrinsic stenosis which was dilated with a balloon dilator to 16.5 mm. , patient has been without tramadol for her back pain for the past 28 days which could cause belly pain and diarrhea secondary to opiod withdrawal. Her PCP precribed her gabapentin which can potentially be a cause of her multiple episodes of loose stools. -On physical exam patient's generalized abdominal tenderness is better than yesterday. -Currently on PPI twice a day and GI cocktail. Awaiting GI recommendations (3) GERD (gastroesophageal reflux disease) Current Visit: Yes Status: Acute Assessment and Plan: - patient has a Hx of GERD. Her last EGD showed benign-appearing intrinsic stenosis which was dilated with a balloon dilator to 16.5 mm. - she takes 20 mg Prilosec at home - on physical exam she endorses generalized abdominal pain which get worse with PO intake, the abdominal pain doesn't have any correlation with laying down vs sitting during this admission. no cough appreciated. - currently on IV protonix and GI cocktail . Adequate pain control. Awaiting GI recommendations (4) UTI (urinary tract infection) Current Visit: Yes Status: Acute Assessment and Plan: - patient has a Hx of UTI and has had multiple admission to the hospital for her UTI. - her urine culture was unremarkable as of today. - on physical exam she endorses no supra pubic pain, dysurea or hematurea. Not leukocytotic since admission -with no evidence of a UTI ,plan is to discontinue her Macrobid. Continue to monitor. (5) Hypertension Current Visit: No Status: Chronic Assessment and Plan: - patient has a Hx of HTN - she continues to be on her home meds . - Time Spent with Patient Total time spent is greater than 50% in coordination of care (as documented) at patient's floor/unit and/or counseling patient: Internal Medicine: Result - Labs CBC & Chem 7: 02/06/18 00:35 02/06/18 00:35 Labs: Short CBC 02/06/18 Range/Units 00:35 WBC 5.4 (4.3-11.1) K/mcL Hgb 12.8 (11.5-15.4) g/dL Hct 36.8 (35.3-44.9) % Plt Count 199 (140-400) K/mcL Neutrophils # 3.4 (1.6-8.9) K/mcL BMP 02/05/18 02/05/18 02/06/18 15:43 19:28 00:35 Sodium 121 L 122 L 123 L Potassium Chloride Carbon Dioxide BUN Creatinine Glucose Calcium 02/06/18 00:35 Sodium 123 L Potassium 3.8 Chloride 91 L Carbon Dioxide 27 BUN 12 Creatinine 0.71 Glucose 121 H Calcium 9.1 Urine 02/06/18 Range/Units 00:01 Urine Color Yellow (Yellow) Urine Clarity Clear (Clear) Urine pH 7.0 (5.0-8.0) pH Units Ur Specific Burns 1.008 L (1.010-1.025) Urine Protein Negative (Neg-Trace) mg/dL Urine Glucose (UA) Normal (Normal) mg/dL Consult Discharge Plan - Plan Referrals: Cindy Benitez, [Primary Care Provider] - <Joel Sam - Last Filed: 02/06/18 17:49> Hospitalist Progress Note - Encounter Date of Encounter: 02/06/18 - Exam Vitals: Temp Pulse Resp BP Pulse Ox 98.2 F 69 16 149/75 94 02/06/18 06:35 02/06/18 10:28 02/06/18 10:28 02/06/18 10:28 02/06/18 10:28 - Assessment and Plan (1) Hyponatremia Current Visit: Yes Status: Acute (2) UTI (urinary tract infection) Current Visit: Yes Status: Acute (3) Nausea Current Visit: Yes Status: Acute (4) GERD (gastroesophageal reflux disease) Current Visit: Yes Status: Acute (5) Abdominal pain Current Visit: Yes Status: Acute (6) Diet-controlled type 2 diabetes mellitus Current Visit: No Status: Chronic (7) Hypertension Current Visit: No Status: Chronic (8) Coronary artery disease, non-occlusive Current Visit: No Status: Chronic - Time Spent with Patient Total time spent is greater than 50% in coordination of care (as documented) at patient's floor/unit and/or counseling patient: Internal Medicine: Result - Labs CBC & Chem 7: 02/06/18 00:35 02/06/18 16:49 Labs: Short CBC 02/06/18 Range/Units 00:35 WBC 5.4 (4.3-11.1) K/mcL Hgb 12.8 (11.5-15.4) g/dL Hct 36.8 (35.3-44.9) % Plt Count 199 (140-400) K/mcL Neutrophils # 3.4 (1.6-8.9) K/mcL BMP 02/05/18 02/06/18 02/06/18 19:28 00:35 00:35 Sodium 122 L 123 L 123 L Potassium 3.8 Chloride 91 L Carbon Dioxide 27 BUN 12 Creatinine 0.71 Glucose 121 H Calcium 9.1 02/06/18 16:49 Sodium 130 L Potassium Chloride Carbon Dioxide BUN Creatinine Glucose Calcium Urine 02/06/18 Range/Units 00:01 Urine Color Yellow (Yellow) Urine Clarity Clear (Clear) Urine pH 7.0 (5.0-8.0) pH Units Ur Specific Burns 1.008 L (1.010-1.025) Urine Protein Negative (Neg-Trace) mg/dL Urine Glucose (UA) Normal (Normal) mg/dL - Attending Attestation I examined this patient and my medical decision-making was reviewed with the Resident Physician on 02/06/18. I agree with the documented findings, disposition and treatment plan as described except to the extent set forth below. Ms Moreno is currently in observation for abdominal pain and hyponatremia. She remains moderate to high risk. Ms Moreno continues to have abd discomfort. She says she is having diarrhea. No fever or chills. Not eating a whole lot. Na still low. Exam alert Comfortable moving around Mucus membranes dry Heart rega and not tachy No wheeze abd soft - less tender No edema I/P 1. Abd pain 2. Hyponatremia Further diagnoses and plan as above. <Sierra Mariebh - Last Filed: 02/06/18 17:10> (2) Abdominal pain Qualifiers: Abdominal location: left upper quadrant Qualified Code(s): R10.12 - Left upper quadrant pain (3) GERD (gastroesophageal reflux disease) Qualifiers: Esophagitis presence: without esophagitis Qualified Code(s): K21.9 - Gastro- esophageal reflux disease without esophagitis (4) UTI (urinary tract infection) Qualifiers: Urinary tract infection type: acute cystitis Hematuria presence: with hematuria Qualified Code(s): N30.01 - Acute cystitis with hematuria (5) Hypertension Qualifiers: Hypertension type: essential hypertension Qualified Code(s): I10 - Essential (primary) hypertension <Joel Sam - Last Filed: 02/06/18 17:49> (2) UTI (urinary tract infection) Qualifiers: Urinary tract infection type: acute cystitis Hematuria presence: with hematuria Qualified Code(s): N30.01 - Acute cystitis with hematuria (4) GERD (gastroesophageal reflux disease) Qualifiers: Esophagitis presence: without esophagitis Qualified Code(s): K21.9 - Gastro- esophageal reflux disease without esophagitis (5) Abdominal pain Qualifiers: Abdominal location: left upper quadrant Qualified Code(s): R10.12 - Left upper quadrant pain (7) Hypertension Qualifiers: Hypertension type: essential hypertension Qualified Code(s): I10 - Essential (primary) hypertension
--- NOTE | 2018-02-06 15:55 | Electrocardiograph Report ---
[address] [place] [id number] Test Date: 2018-02-03 Pat Name: Christina Moreno Department: EXAM8 Room: [facility] Gender: F Paper Inserter: : 1935 Requested By: Koby Hernandez Order Number: [id number] Reading MD: Corinna Castillo Measurements Intervals [place] Rate: 64 P: 60 NM: 181 QRS: 23 QRSD: 100 T: 85 QT: 411 QTc: 424 Interpretive Statements Sinus rhythm nonspecific ST abnormalities Electronically Signed On 02-06-2018 15:54:12 EDT by Corinna Castillo
[2018-02-06] MEDS: Melatonin 3 MG TABLET PO PRN (20:18)
[2018-02-07 01:08] LABS: Hemoglobin 13.5 g/dL (11.5-15.4); Mean Corpuscular HGB Conc 33.8 g/dL (31.6-35.5); Mean Corpuscular Hemoglobin 30.5 pg (28.0-33.3); Mean Corpuscular Volume 90.5 fL (83.0-100.0); Mean Platelet Volume 9.1 fL (9.4-12.4); Platelet Count 216 K/mcL (140-400); Red Blood Count 4.42 M/mcL (3.82-4.97)
[2018-02-07 01:27] LABS: BUN/Creatinine Ratio 15 (6-26); Blood Urea Nitrogen 11 mg/dL (8-23); Calcium 9.1 mg/dL (8.6-10.3); Carbon Dioxide 28 mEq/L (23-29); Chloride 98 mEq/L (98-107); Glucose 115 mg/dL (70-105); Magnesium 2.1 mg/dL (1.6-2.6); Osmolality,Calculated 274 (280-300); Potassium 3.9 mEq/L (3.5-5.1); Sodium 132 mEq/L (136-145); eGFR For Non-African Americans > 60 (> 60)
[2018-02-07] MEDS: GI Cocktail 40 ML EACH PO PRN (03:05)
[2018-02-07] MEDS ORDERED: clonazePAM 0.5 MG TABLET PO PRN (04:57)
[2018-02-07] MEDS: *HR* Heparin 5,000 UNIT/ML VIAL SQ SCH (05:12)
[2018-02-07] MEDS: traMADol 50 MG TABLET PO PRN (05:17)
[2018-02-07] MEDS: Pantoprazole 40 MG VIAL IVP SCH (08:28)
[2018-02-07] MEDS: amLODIPine 5 MG TABLET PO SCH (08:28)
[2018-02-07] MEDS: Lisinopril 20 MG TABLET PO SCH (08:29)
[2018-02-07 11:32] VITALS: BP 148/87
[2018-02-07 12:00] LABS: Adenovirus F 40/41 PCR Not detected (Not detect); Astrovirus PCR Not detected (Not detect); C.difficile Toxin A/B by PCR Not detected (Not detect); Campylobacter by PCR Not detected (Not detect); Cryptosporidium by PCR Not detected (Not detect); Cyclospora cayetanensis PCR Not detected (Not detect); E. coli O157 by PCR Not detected (Not detect); Entamoeba histolytica PCR Not detected (Not detect); Enteroaggregative E.coli(EAEC) Not detected (Not detect); Enteropathogenic E.coli(EPEC) Not detected (Not detect); Enterotoxigenic E.coli (ETEC) Not detected (Not detect); Giardia lamblia PCR Not detected (Not detect); Norovirus GI/GII PCR Not detected (Not detect); Plesiomonas shigelloides PCR Not detected (Not detect); Rotavirus A PCR Not detected (Not detect); Salmonella PCR Not detected (Not detect); Sapovirus PCR Not detected (Not detect); Shig/EnteroinvasiveE coli EIEC Not detected (Not detect); Shigalike tox-prod E coli STEC Not detected (Not detect); Vibrio PCR Not detected (Not detect); Vibrio cholerae PCR Not detected (Not detect); Yersinia enterocolitica PCR Not detected (Not detect)
--- NOTE | 2018-02-07 12:09 | Discharge Summary ---
<Roe Marie - Last Filed: 02/07/18 14:19> - NOTES TO OUTPATIENT PROVIDER Notes to Outpatient Provider: - follow up with the Conveyor Technician as an outpatient. - stay hydrated. Orders not resulted at time of discharge: Pending orders 02/07/18 01:27 Cortisol Fr,Ur Random or 24hr Routine Date of Encounter: 02/07/18 Time of Encounter: 10:00 - Discharge Diagnosis (1) Hyponatremia Priority: Secondary Status: Acute (2) Abdominal pain Priority: Primary Status: Acute Qualifiers: Abdominal location: left upper quadrant Qualified Code(s): R10.12 - Left upper quadrant pain (3) GERD (gastroesophageal reflux disease) Priority: Secondary Status: Acute Qualifiers: Esophagitis presence: without esophagitis Qualified Code(s): K21.9 - Gastro -esophageal reflux disease without esophagitis (4) UTI (urinary tract infection) Priority: Secondary Status: Acute Qualifiers: Urinary tract infection type: acute cystitis Hematuria presence: with hematuria Qualified Code(s): N30.01 - Acute cystitis with hematuria (5) Hypertension Priority: Secondary Status: Chronic Qualifiers: Hypertension type: essential hypertension Qualified Code(s): I10 - Essential (primary) hypertension Hospital course: Ms. Moreno is a 82 year old female with a PMHx of GERd, hiatal hernia, back pain who was admitted to the hospital for generalized abdominal pain. Patient has had multiple admissions in the past for the same reason, has had an EGD done last year , underwent dilation due to stenosis. She take 20 mg Prilosec at home for her GERD. During the course of this hospital encounter, patient was treated with GI cocktail, Maalox, and IV PRotonix. We also learnt that patient has been without her Tramdol pills which she takes for chronic pain and was prescribed Gabapentin. We started her back on her tramadol 50 mg BID. Patient endorses that her belly pain is reactively getting better . It seems to me that his belly pain and her diarrheal episodes could be secondary to her opioid withdrawal. Patient is being sent home on 4 day suple of tramadol until she can get her refills from her PCP. - Time Spent with Patient Total time spent providing and/or coordinating discharge services: - Discharge Medications Prescriptions: Tramadol HCl [Ultram] 50 mg PO BID PRN 7 Days #16 tablet PRN Reason: Pain Home Medications: Cholecalciferol (D-3) [Vitamin D] 2,000 unit PO DAILY 01/31/16 [History] Lisinopril [Zestril] 40 mg PO DAILY 01/31/16 [History] Metoprolol [Lopressor] 50 mg PO BID 01/31/16 [History] amLODIPine [Norvasc] 5 mg PO DAILY 01/31/16 [History] clonazePAM [Klonopin] 0.25 - 0.5 mg PO BID PRN 01/31/16 [History] Omeprazole [PriLOSEC] 20 mg PO DAILY #30 capsule. 02/13/16 [Rx] Tramadol HCl [Ultram] 50 mg PO BID PRN 7 Days #16 tablet 02/07/18 [Rx] Allergies/Adverse Reactions: 3 Allergy/AdvReac Type Severity Reaction Status Date / Time codeine Allergy See Verified 02/03/18 20:29 Comments diazepam [From Valium] Allergy See Verified 02/03/18 20:29 Comments Penicillins Allergy See Verified 02/03/18 20:29 Comments Sulfa (Sulfonamide Allergy See Verified 02/03/18 20:29 Antibiotics) Comments diphenhydramine AdvReac Vomiting Verified 02/03/18 20:29 [From Benadryl] Date of admission: 02/03/18 21:52 Primary care physician: Cindy Benitez DO Consults: 02/05/18 14:01 Consult to Gastroenterology [CONS] Routine Consulting Provider: Gastroenterology Saima Reason for Consult: abdominal pain Call Completed: Yes - Constitutional Vitals: Temp Pulse Resp BP Pulse Ox 98 F 76 16 148/87 95 02/07/18 09:59 02/07/18 09:59 02/07/18 09:59 02/07/18 09:59 02/07/18 09:59 Exam: GENERAL: Alert, moderate distress, cooperative LUNGS: Lungs clear to auscultation, Good diaphragmatic excursion CARDIAC: Normal S1 and S2; no rubs, murmurs, or gallops ABDOMEN: Abdomen soft, non-tender, no rebound tenderness or guarding. EXTREMITIES: Extremities normal, no deformities, edema, clubbing or skin discoloration. Good capillary refill., No ulcers NEURO: Gait normal. Reflexes normal and symmetric. Sensation grossly intact, Cranial nerves II-XII intact PULSES: 2+ radial, 2+ carotid Rest of the exam is non contributory - Patient Status Disposition: Home, Self-Care Condition: Fair Overall status at discharge: patient is progressing back to baseline - Discharge Instructions Follow Up With: Cindy Benitez DO [Primary Care Provider] - 02/12/18 1:00 pm (with Kat Jack) Additional Instructions: Go to nearest emergency room for any new or worsening symptoms. Take all medications as prescribed. - Diet and Activity Activity: increase activity as tolerated Diet: low fat, low cholesterol, low salt diet <Joel Sam - Last Filed: 02/07/18 19:11> Orders not resulted at time of discharge: Pending orders 02/07/18 01:27 Cortisol Fr,Ur Random or 24hr Routine Date of Encounter: 02/07/18 - Discharge Diagnosis (1) Opiate withdrawal Priority: Primary Status: Suspected Assessment and Plan: Due to Ultram (2) Hyponatremia Status: Resolved (3) UTI (urinary tract infection) Status: Resolved Qualifiers: Urinary tract infection type: acute cystitis Hematuria presence: with hematuria Qualified Code(s): N30.01 - Acute cystitis with hematuria (4) Nausea Priority: Secondary Status: Resolved (5) GERD (gastroesophageal reflux disease) Status: Resolved Qualifiers: Esophagitis presence: without esophagitis Qualified Code(s): K21.9 - Gastro -esophageal reflux disease without esophagitis (6) Abdominal pain Status: Resolved Qualifiers: Abdominal location: left upper quadrant Qualified Code(s): R10.12 - Left upper quadrant pain (7) Diet-controlled type 2 diabetes mellitus Priority: Secondary Status: Chronic (8) Hypertension Status: Chronic Qualifiers: Hypertension type: essential hypertension Qualified Code(s): I10 - Essential (primary) hypertension (9) Coronary artery disease, non-occlusive Priority: Secondary Status: Chronic Hospital course: Ms. Moreno is a 82 year old female - Time Spent with Patient Total time spent providing and/or coordinating discharge services: Date of admission: 02/03/18 21:52 Primary care physician: Cindy Benitez DO Consults: 02/05/18 14:01 Consult to Gastroenterology [CONS] Routine Consulting Provider: Gastroenterology Saima Reason for Consult: abdominal pain Call Completed: Yes - Constitutional Vitals: Temp Pulse Resp BP Pulse Ox 98 F 76 16 148/87 95 02/07/18 09:59 02/07/18 09:59 02/07/18 09:59 02/07/18 09:59 02/07/18 09:59 - Attending Attestation I examined this patient and my medical decision-making was reviewed with the Resident Physician on 02/07/18. I agree with the documented findings, disposition and treatment plan as described except to the extent set forth below. Ms Moreno has been in observation for abdominal pain. She had run out of Ultram early and could not get refilled. Today she is feeling better and is afebrile. She is ready for discharge home. Exam alert Comfortable Mucus membranes dry Heart not tachy Abd soft No wheeze Plan D/C home today.
[2018-02-07] MEDS: Mag Hydrox/Al Hydrox/Simeth 30 ML UDC PO PRN (14:40)
--- NOTE | 2018-02-07 19:35 | Event Note ---
Date of Encounter: 02/07/18 Time of Encounter: 18:00 I received a message to contact patient's pharmacy about Tramadol script. According to pharmacist he cannot fill what I wrote because it is exactly what her prior script was and she should still have meds until 02/13. He said if I increased the frequency he could fill it. I would not do this and said she needed to call PCP. I realize she may return for abd pain and diarrhea related to opiate withdrawal and get readmitted.
--- NOTE | 2018-02-08 08:38 | Electrocardiograph Report ---
[place] [id number] Test Date: 2018-02-06 Pat Name: Christina Moreno Department: 114 Room: [facility] Gender: F Household Worker: : 1935 Requested By: Joel Sam Order Number: [id number] Reading MD: Matthew Villatoro Measurements Intervals [place] Rate: 73 P: 85 VA: 190 QRS: 7 QRSD: 96 T: 66 QT: 372 QTc: 399 Interpretive Statements SINUS RHYTHM WITH OCCASIONAL SUPRAVENTRICULAR PREMATURE COMPLEXES MINIMAL VOLTAGE CRITERIA FOR LVH, CONSIDER NORMAL VARIANT NONSPECIFIC T-WAVE ABNORMALITY Electronically Signed On 02-08-2018 8:36:31 EDT by Matthew Villatoro
[2018-02-10 12:50] LABS: Urine Collection Duration RANDOM hr; Urine Collection Volume RANDOM mL
== END 2018-02-07 14:52 | disposition home or self-care (01) ==
LOC: 3NENU 17:42 → EMEROOARM 17:42 → SUATTDRO 21:52 → 3NENU 22:45
PROVIDERS: ADMIT Pediatrics; ATTEND Internal Medicine

== ENCOUNTER 2018-02-18 10:47 | Observation (INO) ==
[2018-02-18] MEDS ORDERED: *HR* FentaNYL (PF) 100 MCG/2 ML VIAL IVP ONE (10:58)
--- NOTE | 2018-02-18 11:20 | Emergency Department Note ---
Disposition Clinical Impression: Diverticulitis Disposition: Admitted As Inpatient Condition: Good Referrals: Cindy Benitez DO [Primary Care Provider] - Forms: ED Satisfaction Letter, Work/School Release Time of Disposition: 13:45 General Adult HPI - General Chief complaint: ED Abdominal Pain Stated complaint: Abdominal Pain Time Seen by Provider: 02/18/18 10:51 Source: EMS Limitations: no limitations Nursing Notes Reviewed: Yes Vital Signs Reviewed: Yes - History of Present Illness HPI Narrative: Female patient presenting to emergency department complaining of abdominal pain. She states she was admitted 3 weeks ago for diverticulitis. States that she is not feeling any better. Having subjective fevers at home. Abdominal pain. No nausea or vomiting. States that she was on antibiotics while here in the hospital and sent home. However despite the home antibiotics she is not getting any better. Pain Scale: 10 - Related Data Home Medications Medication Instructions Recorded Confirmed Cholecalciferol (D-3) [Vitamin D] 2,000 unit PO DAILY 01/31/16 02/03/18 Lisinopril [Zestril] 40 mg PO DAILY 01/31/16 02/03/18 Metoprolol [Lopressor] 50 mg PO BID 01/31/16 02/03/18 amLODIPine [Norvasc] 5 mg PO DAILY 01/31/16 02/03/18 clonazePAM [Klonopin] 0.25 - 0.5 mg PO BID PRN 01/31/16 02/03/18 Gabapentin [Neurontin] 300 mg PO HS 02/18/18 02/18/18 Omeprazole [PriLOSEC] 40 mg PO BID 02/18/18 02/18/18 Quetiapine Fumarate [Seroquel] 50 mg PO HS 02/18/18 02/18/18 Sertraline [Zoloft] 150 mg PO DAILY 02/18/18 02/18/18 Sucralfate [Carafate] 1 gm PO BID 02/18/18 02/18/18 Previous Rx's Medication Instructions Recorded Tramadol HCl [Ultram] 50 mg PO BID PRN 7 Days #16 tablet 02/07/18 Ciprofloxacin [Cipro] 500 mg PO BID #20 tablet 02/11/18 Ondansetron ODT [Zofran ODT] 4 mg SL Q6HR #10 tab.rapdis 02/11/18 metroNIDAZOLE [Flagyl] 500 mg PO BID #20 tablet 02/11/18 Allergies Allergy/AdvReac Type Severity Reaction Status Date / Time codeine Allergy See Verified 02/03/18 20:29 Comments diazepam [From Valium] Allergy See Verified 02/03/18 20:29 Comments Penicillins Allergy See Verified 02/03/18 20:29 Comments Sulfa (Sulfonamide Allergy See Verified 02/03/18 20:29 Antibiotics) Comments diphenhydramine AdvReac Vomiting Verified 02/03/18 20:29 [From Benadryl] All systems ED: reviewed and negative except as stated. Review of Systems: As Per HPI Constitutional: Reports: fever (Subjective) Cardiovascular: Denies: chest pain, palpitations, syncope Respiratory: Denies: cough, dyspnea Gastrointestinal: Reports: abdominal pain, nausea. Denies: vomiting, diarrhea, melena, hematochezia Genitourinary: Denies: urgency, dysuria Neurological: Reports: weakness Past Medical History - Past Medical History Attestation: Yes The following information was validated with the patient. 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 - Social History Smoking Status: Never smoker Smokeless Tobacco Status: No Alcohol use: Reports: none Drug use: Reports: none Physical Exam - General Limitations: no limitations General appearance: alert, in no apparent distress - Head Head exam: atraumatic, normocephalic, normal inspection - Eye Eye exam: Present: normal appearance, PERRL, EOMI - ENT ENT exam: normal exam, normal oropharynx, mucous membranes moist - Neck Neck exam: Present: normal inspection, full ROM, trachea midline - Chest Chest inspection: Present: normal inspection, symmetric chest wall rise - Respiratory Respiratory exam: Present: normal lung sounds bilaterally. Absent: respiratory distress, accessory muscle use - Cardiovascular Cardiovascular exam: Present: regular rate, normal rhythm, normal heart sounds - Abdominal Exam Abdominal exam: Present: soft, tenderness (Diffusely.), guarding (Throughout exam.). Absent: distention, rebound, rigidity - Extremities Exam Extremities exam: Present: normal inspection, full ROM, normal capillary refill. Absent: tenderness, pedal edema - Back Exam Back exam: Present: normal inspection, full ROM. Absent: tenderness - Neurological Exam Neurological exam: Present: alert, oriented X3 - Psychiatric Psychiatric exam: Present: normal affect, normal mood - Skin Skin exam: Present: warm, dry, intact, normal color Course Course Narrative: Patient was given pain medication while here. She is having a diffuse abdominal pain. States that she has been getting worse since she has been home. Was on antibiotics we will admit to the hospital. She was Transition to by mouth antibiotics and discharged home. Family is at bedside stating that the patient does not appear to be getting better. Subjective fevers at home. Does have diffuse abdominal pain throughout. No vomiting while here. We did provide patient with pain medication. CT of patient's abdomen showed diverticulitis was still present however was resolving. We will admit patient to the hospital and begin regimen of antibiotic sick again at this time. - Consultations Consultation #1: Dr Prajapati accepted Pt in stable condition. Time: 13:14 Vital Signs Temperature 98.7 F 02/18/18 10:51 Pulse Rate 66 02/18/18 10:51 Respiratory Rate 18 02/18/18 10:51 Blood Pressure 148/70 02/18/18 10:51 O2 Sat by Pulse Oximetry 96 02/18/18 10:51 Temperature 98.7 F 02/18/18 10:51 Pulse Rate 66 02/18/18 10:51 Respiratory Rate 18 02/18/18 10:51 Blood Pressure 148/70 02/18/18 10:51 O2 Sat by Pulse Oximetry 96 02/18/18 10:51 Oxygen Delivery Oxygen Delivery Room Air Medical Decision Making - Medical Records Medical records reviewed: Yes I reviewed the patient's medical records. - Lab Data Lab results reviewed: Yes I reviewed the patient's lab results. Result diagrams: 02/18/18 11:14 02/18/18 11:14 Lab Results 02/18/18 02/18/18 02/18/18 Range/Units 11:14 11:14 11:14 WBC 5.8 (4.3-11.1) K/mcL RBC 4.05 (3.82-4.97) M/mcL Hgb 12.7 (11.5-15.4) g/dL Hct 36.3 (35.3-44.9) % MCV 89.6 (83.0-100.0) fL MCH 31.4 (28.0-33.3) pg MCHC 35.0 (31.6-35.5) g/dL RDW 13.2 (11.5-14.5) % Plt Count 221 (140-400) K/mcL MPV 8.6 L (9.4-12.4) fL Immature Gran % 0.2 (0-4) % Seg Neutrophils % 74.3 % Lymphocytes % 17.0 % Monocytes % 6.9 % Eosinophils % 0.9 % Basophils % 0.7 % Neutrophils # 4.3 (1.6-8.9) K/mcL Lymphocytes # 1.0 (0.6-4.6) K/mcL Monocytes # 0.4 (0.0-1.3) K/mcL Eosinophils # 0.1 (0.0-0.6) K/mcL Basophils # 0.0 (0.0-0.2) K/mcL Sodium 129 L (136-145) mEq/L Potassium 3.6 (3.5-5.1) mEq/L Chloride 97 L (98-107) mEq/L Carbon Dioxide 24 (23-29) mEq/L BUN 4 L (8-23) mg/dL Creatinine 0.61 (0.60-1.20) mg/dL Est GFR ( Amer) > 60 (> 60) Est GFR (Non-Af Amer) > 60 (> 60) BUN/Creatinine Ratio 7 (6-26) Glucose 116 H (70-105) mg/dL Calculated Osmolality 266 L (280-300) Lactic Acid 1.3 (0.5-2.2) mmol/L Calcium 9.0 (8.6-10.3) mg/dL Total Bilirubin 0.3 (0.3-1.0) mg/dL Direct Bilirubin 0.1 (0.0-0.2) mg/dL Indirect Bilirubin 0.2 (0.0-1.2) mg/dL AST 19 (13-39) Units/L ALT 19 (7-52) Units/L Alkaline Phosphatase 50 (34-104) Units/L Troponin I < 0.03 (< 0.04) ng/mL Serum Total Protein 6.3 L (6.4-8.9) g/dL Albumin 3.7 (3.5-5.7) g/dL Globulin 2.6 (2.4-3.5) g/dL Albumin/Globulin Ratio 1.4 (1.1-2.2) Lipase 43 (11-82) Units/L Urine Color (Yellow) Urine Clarity (Clear) Urine pH (5.0-8.0) pH Units Ur Specific [place] (1.010-1.025) Urine Protein (Neg-Trace) mg/dL Urine Glucose (UA) (Normal) mg/dL Urine Ketones (Negative) mg/dL Urine Blood (Negative) Urine Nitrite (Negative) Urine Bilirubin (Negative) Urine Urobilinogen (Normal) mg/dL Ur Leukocyte Esterase (Negative) Urine Microscopic RBC (0-3) per hpf Urine Microscopic WBC (0-3) per hpf Ur Squamous Epith Cells (None-Few) per lpf Urine Bacteria (None-Few) per hpf Hyaline Casts (None-Few) per lpf Ur Culture Indicated? (NO) 02/18/18 Range/Units 12:00 WBC (4.3-11.1) K/mcL RBC (3.82-4.97) M/mcL Hgb (11.5-15.4) g/dL Hct (35.3-44.9) % MCV (83.0-100.0) fL MCH (28.0-33.3) pg MCHC (31.6-35.5) g/dL RDW (11.5-14.5) % Plt Count (140-400) K/mcL MPV (9.4-12.4) fL Immature Gran % (0-4) % Seg Neutrophils % % Lymphocytes % % Monocytes % % Eosinophils % % Basophils % % Neutrophils # (1.6-8.9) K/mcL Lymphocytes # (0.6-4.6) K/mcL Monocytes # (0.0-1.3) K/mcL Eosinophils # (0.0-0.6) K/mcL Basophils # (0.0-0.2) K/mcL Sodium (136-145) mEq/L Potassium (3.5-5.1) mEq/L Chloride (98-107) mEq/L Carbon Dioxide (23-29) mEq/L BUN (8-23) mg/dL Creatinine (0.60-1.20) mg/dL Est GFR ( Amer) (> 60) Est GFR (Non-Af Amer) (> 60) BUN/Creatinine Ratio (6-26) Glucose (70-105) mg/dL Calculated Osmolality (280-300) Lactic Acid (0.5-2.2) mmol/L Calcium (8.6-10.3) mg/dL Total Bilirubin (0.3-1.0) mg/dL Direct Bilirubin (0.0-0.2) mg/dL Indirect Bilirubin (0.0-1.2) mg/dL AST (13-39) Units/L ALT (7-52) Units/L Alkaline Phosphatase (34-104) Units/L Troponin I (< 0.04) ng/mL Serum Total Protein (6.4-8.9) g/dL Albumin (3.5-5.7) g/dL Globulin (2.4-3.5) g/dL Albumin/Globulin Ratio (1.1-2.2) Lipase (11-82) Units/L Urine Color Yellow (Yellow) Urine Clarity Clear (Clear) Urine pH 7.5 (5.0-8.0) pH Units Ur Specific [place] 1.005 L (1.010-1.025) Urine Protein Negative (Neg-Trace) mg/dL Urine Glucose (UA) Normal (Normal) mg/dL Urine Ketones Negative (Negative) mg/dL Urine Blood Negative (Negative) Urine Nitrite Negative (Negative) Urine Bilirubin Negative (Negative) Urine Urobilinogen Normal (Normal) mg/dL Ur Leukocyte Esterase Trace H (Negative) Urine Microscopic RBC 0-3 (0-3) per hpf Urine Microscopic WBC 0-3 (0-3) per hpf Ur Squamous Epith Cells Moderate H (None-Few) per lpf Urine Bacteria None Seen (None-Few) per hpf Hyaline Casts None Seen (None-Few) per lpf Ur Culture Indicated? YES A (NO) - Radiology Data Radiology results reviewed: Yes I reviewed the patient's radiology results. Abdomen/Pelvis CT 02/18/18 10:57 IMPRESSION: Interval improvement in findings of acute uncomplicated sigmoid diverticulitis. Unchanged left renal angiomyolipomas. D/ / Flaco Aguirre MD / Flaco Aguirre MD Interpreting Provider: Flaco Aguirre MD - EKG Data EKG #1 EKG attestation: Yes I reviewed and interpreted this EKG. EKG results narrative: Normal sinus rhythm at a rate of 65. ME interval is 191. QRS duration is 95. QT is 422. QTC is 439. No signs of acute ischemia. No previous EKG to compare to. Good R-wave progression.
[2018-02-18 11:28] LABS: Basophils % 0.7 %; Eosinophils # 0.1 K/mcL (0.0-0.6); Eosinophils % 0.9 %; Hematocrit 36.3 % (35.3-44.9); Hemoglobin 12.7 g/dL (11.5-15.4); Immature Granulocytes % 0.2 % (0-4); Mean Corpuscular Hemoglobin 31.4 pg (28.0-33.3); Mean Corpuscular Volume 89.6 fL (83.0-100.0); Mean Platelet Volume 8.6 fL (9.4-12.4); Monocytes # 0.4 K/mcL (0.0-1.3); Monocytes % 6.9 %; Neutrophils # 4.3 K/mcL (1.6-8.9); Platelet Count 221 K/mcL (140-400); Red Blood Count 4.05 M/mcL (3.82-4.97); Red Cell Distribution Width 13.2 % (11.5-14.5); Segmented Neutrophils % 74.3 %
[2018-02-18 11:52] LABS: Troponin I < 0.03 ng/mL (< 0.04)
[2018-02-18 11:56] LABS: Alanine Aminotransferase 19 Units/L (7-52); Albumin 3.7 g/dL (3.5-5.7); Albumin/Globulin Ratio 1.4 (1.1-2.2); Alkaline Phosphatase 50 Units/L (34-104); Aspartate Amino Transferase 19 Units/L (13-39); BUN/Creatinine Ratio 7 (6-26); Bilirubin,Direct 0.1 mg/dL (0.0-0.2); Bilirubin,Indirect 0.2 mg/dL (0.0-1.2); Bilirubin,Total 0.3 mg/dL (0.3-1.0); Blood Urea Nitrogen 4 mg/dL (8-23); Carbon Dioxide 24 mEq/L (23-29); Chloride 97 mEq/L (98-107); Globulin 2.6 g/dL (2.4-3.5); Glucose 116 mg/dL (70-105); Lipase 43 Units/L (11-82); Osmolality,Calculated 266 (280-300); Potassium 3.6 mEq/L (3.5-5.1); Sodium 129 mEq/L (136-145); Total Protein 6.3 g/dL (6.4-8.9); eGFR For Non-African Americans > 60 (> 60)
[2018-02-18 12:10] LABS: Bilirubin,Urine Negative (Negative); Blood,Urine Negative (Negative); Clarity,Urine Clear (Clear); Color,Urine Yellow (Yellow); Glucose,Urine (UA) Normal (Normal); Ketones,Urine Negative (Negative); Leukocyte Esterase,Urine Trace (Negative); Nitrite,Urine Negative (Negative); PH,Urine 7.5 pH Units (5.0-8.0); Protein,Urine Negative (Neg-Trace); Specific Gravity,Urine 1.005 (1.010-1.025); Urobilinogen,Urine Normal (Normal)
[2018-02-18 12:13] LABS: Bacteria,Urine None Seen per hpf (None-Few); Hyaline Casts,Urine None Seen per lpf (None-Few); RBC,Urine 0-3 per hpf (0-3); Squamous Epithelial Cell,Urine Moderate per lpf (None-Few); WBC,Urine 0-3 per hpf (0-3)
[2018-02-18] MEDS ORDERED: MetroNIDAZOLE 500 MG/100 ML 500 MG/100 ML BAG IVPB ONE (12:53)
--- NOTE | 2018-02-18 13:17 | Emergency Department Note ---
Disposition Clinical Impression: Diverticulitis Disposition: Admitted As Inpatient Referrals: Cindy Benitez DO [Primary Care Provider] - Forms: ED Satisfaction Letter, Work/School Release General Adult HPI - General Chief complaint: ED Abdominal Pain Stated complaint: Abdominal Pain Time Seen by Provider: 02/18/18 10:51 Source: EMS Limitations: no limitations - History of Present Illness Pain Scale: 10 - Related Data Home Medications Medication Instructions Recorded Confirmed Cholecalciferol (D-3) [Vitamin D] 2,000 unit PO DAILY 01/31/16 02/03/18 Lisinopril [Zestril] 40 mg PO DAILY 01/31/16 02/03/18 Metoprolol [Lopressor] 50 mg PO BID 01/31/16 02/03/18 amLODIPine [Norvasc] 5 mg PO DAILY 01/31/16 02/03/18 clonazePAM [Klonopin] 0.25 - 0.5 mg PO BID PRN 01/31/16 02/03/18 Previous Rx's Medication Instructions Recorded Omeprazole [PriLOSEC] 20 mg PO DAILY #30 capsule. 02/13/16 Tramadol HCl [Ultram] 50 mg PO BID PRN 7 Days #16 tablet 02/07/18 Ciprofloxacin [Cipro] 500 mg PO BID #20 tablet 02/11/18 Ondansetron ODT [Zofran ODT] 4 mg SL Q6HR #10 tab.rapdis 02/11/18 metroNIDAZOLE [Flagyl] 500 mg PO BID #20 tablet 02/11/18 Allergies Allergy/AdvReac Type Severity Reaction Status Date / Time codeine Allergy See Verified 02/03/18 20:29 Comments diazepam [From Valium] Allergy See Verified 02/03/18 20:29 Comments Penicillins Allergy See Verified 02/03/18 20:29 Comments Sulfa (Sulfonamide Allergy See Verified 02/03/18 20:29 Antibiotics) Comments diphenhydramine AdvReac Vomiting Verified 02/03/18 20:29 [From Benadryl] Constitutional: Reports: fever (Subjective) Cardiovascular: Denies: chest pain, palpitations, syncope Respiratory: Denies: cough, dyspnea Gastrointestinal: Reports: abdominal pain, nausea. Denies: vomiting, diarrhea, melena, hematochezia Genitourinary: Denies: urgency, dysuria Neurological: Reports: weakness Past Medical History - Past Medical History Medical history: Reports: aortic aneurysm, arthritis, coronary artery disease, diabetes, GERD, GI bleed, hyperlipidemia, hypertension, osteoporosis, other Surgical history: Reports: orthopedic, other, other Psychiatric history: Reports: anxiety, depression, panic disorder, other SHEEP SORTER history: Reports: no SHEEP SORTER history - Social History Smoking Status: Never smoker Smokeless Tobacco Status: No Alcohol use: Reports: none Drug use: Reports: none Physical Exam - General Limitations: no limitations General appearance: alert, in no apparent distress Course Vital Signs Temperature 98.7 F 02/18/18 10:51 Pulse Rate 66 02/18/18 10:51 Respiratory Rate 18 02/18/18 10:51 Blood Pressure 148/70 02/18/18 10:51 O2 Sat by Pulse Oximetry 96 02/18/18 10:51 Temperature 98.7 F 02/18/18 10:51 Pulse Rate 66 02/18/18 10:51 Respiratory Rate 18 02/18/18 10:51 Blood Pressure 148/70 02/18/18 10:51 O2 Sat by Pulse Oximetry 96 02/18/18 10:51 Oxygen Delivery Oxygen Delivery Room Air Medical Decision Making - Lab Data Result diagrams: 02/18/18 11:14 02/18/18 11:14 Lab Results 02/18/18 02/18/18 02/18/18 Range/Units 11:14 11:14 11:14 WBC 5.8 (4.3-11.1) K/mcL RBC 4.05 (3.82-4.97) M/mcL Hgb 12.7 (11.5-15.4) g/dL Hct 36.3 (35.3-44.9) % MCV 89.6 (83.0-100.0) fL MCH 31.4 (28.0-33.3) pg MCHC 35.0 (31.6-35.5) g/dL RDW 13.2 (11.5-14.5) % Plt Count 221 (140-400) K/mcL MPV 8.6 L (9.4-12.4) fL Immature Gran % 0.2 (0-4) % Seg Neutrophils % 74.3 % Lymphocytes % 17.0 % Monocytes % 6.9 % Eosinophils % 0.9 % Basophils % 0.7 % Neutrophils # 4.3 (1.6-8.9) K/mcL Lymphocytes # 1.0 (0.6-4.6) K/mcL Monocytes # 0.4 (0.0-1.3) K/mcL Eosinophils # 0.1 (0.0-0.6) K/mcL Basophils # 0.0 (0.0-0.2) K/mcL Sodium 129 L (136-145) mEq/L Potassium 3.6 (3.5-5.1) mEq/L Chloride 97 L (98-107) mEq/L Carbon Dioxide 24 (23-29) mEq/L BUN 4 L (8-23) mg/dL Creatinine 0.61 (0.60-1.20) mg/dL Est GFR ( Amer) > 60 (> 60) Est GFR (Non-Af Amer) > 60 (> 60) BUN/Creatinine Ratio 7 (6-26) Glucose 116 H (70-105) mg/dL Calculated Osmolality 266 L (280-300) Lactic Acid 1.3 (0.5-2.2) mmol/L Calcium 9.0 (8.6-10.3) mg/dL Total Bilirubin 0.3 (0.3-1.0) mg/dL Direct Bilirubin 0.1 (0.0-0.2) mg/dL Indirect Bilirubin 0.2 (0.0-1.2) mg/dL AST 19 (13-39) Units/L ALT 19 (7-52) Units/L Alkaline Phosphatase 50 (34-104) Units/L Troponin I < 0.03 (< 0.04) ng/mL Serum Total Protein 6.3 L (6.4-8.9) g/dL Albumin 3.7 (3.5-5.7) g/dL Globulin 2.6 (2.4-3.5) g/dL Albumin/Globulin Ratio 1.4 (1.1-2.2) Lipase 43 (11-82) Units/L Urine Color (Yellow) Urine Clarity (Clear) Urine pH (5.0-8.0) pH Units Ur Specific [place] (1.010-1.025) Urine Protein (Neg-Trace) mg/dL Urine Glucose (UA) (Normal) mg/dL Urine Ketones (Negative) mg/dL Urine Blood (Negative) Urine Nitrite (Negative) Urine Bilirubin (Negative) Urine Urobilinogen (Normal) mg/dL Ur Leukocyte Esterase (Negative) Urine Microscopic RBC (0-3) per hpf Urine Microscopic WBC (0-3) per hpf Ur Squamous Epith Cells (None-Few) per lpf Urine Bacteria (None-Few) per hpf Hyaline Casts (None-Few) per lpf Ur Culture Indicated? (NO) 02/18/18 Range/Units 12:00 WBC (4.3-11.1) K/mcL RBC (3.82-4.97) M/mcL Hgb (11.5-15.4) g/dL Hct (35.3-44.9) % MCV (83.0-100.0) fL MCH (28.0-33.3) pg MCHC (31.6-35.5) g/dL RDW (11.5-14.5) % Plt Count (140-400) K/mcL MPV (9.4-12.4) fL Immature Gran % (0-4) % Seg Neutrophils % % Lymphocytes % % Monocytes % % Eosinophils % % Basophils % % Neutrophils # (1.6-8.9) K/mcL Lymphocytes # (0.6-4.6) K/mcL Monocytes # (0.0-1.3) K/mcL Eosinophils # (0.0-0.6) K/mcL Basophils # (0.0-0.2) K/mcL Sodium (136-145) mEq/L Potassium (3.5-5.1) mEq/L Chloride (98-107) mEq/L Carbon Dioxide (23-29) mEq/L BUN (8-23) mg/dL Creatinine (0.60-1.20) mg/dL Est GFR ( Amer) (> 60) Est GFR (Non-Af Amer) (> 60) BUN/Creatinine Ratio (6-26) Glucose (70-105) mg/dL Calculated Osmolality (280-300) Lactic Acid (0.5-2.2) mmol/L Calcium (8.6-10.3) mg/dL Total Bilirubin (0.3-1.0) mg/dL Direct Bilirubin (0.0-0.2) mg/dL Indirect Bilirubin (0.0-1.2) mg/dL AST (13-39) Units/L ALT (7-52) Units/L Alkaline Phosphatase (34-104) Units/L Troponin I (< 0.04) ng/mL Serum Total Protein (6.4-8.9) g/dL Albumin (3.5-5.7) g/dL Globulin (2.4-3.5) g/dL Albumin/Globulin Ratio (1.1-2.2) Lipase (11-82) Units/L Urine Color Yellow (Yellow) Urine Clarity Clear (Clear) Urine pH 7.5 (5.0-8.0) pH Units Ur Specific [place] 1.005 L (1.010-1.025) Urine Protein Negative (Neg-Trace) mg/dL Urine Glucose (UA) Normal (Normal) mg/dL Urine Ketones Negative (Negative) mg/dL Urine Blood Negative (Negative) Urine Nitrite Negative (Negative) Urine Bilirubin Negative (Negative) Urine Urobilinogen Normal (Normal) mg/dL Ur Leukocyte Esterase Trace H (Negative) Urine Microscopic RBC 0-3 (0-3) per hpf Urine Microscopic WBC 0-3 (0-3) per hpf Ur Squamous Epith Cells Moderate H (None-Few) per lpf Urine Bacteria None Seen (None-Few) per hpf Hyaline Casts None Seen (None-Few) per lpf Ur Culture Indicated? YES A (NO) Attestation Statement - Attestation Attestation: I examined this patient and my medical decision-making was reviewed with the Resident Physician. I agree with the documented findings, disposition and treatment plan as described except to the extent set forth below. 82 year old female prsents to the ED with complaints of worsenign diveriticulitis symptoms and has essentially failed outpatient therapy with ABX and states that her symptoms and pain are worsening. She virk snot have a periotenal abdomen but on ABCT it seem as though the diveritluclitis is improving although her symptoms are not and is unable to tolerate PO. WE will admit to medicine with IV ABX
[2018-02-18] MEDS ORDERED: Ondansetron 4 MG/2 ML VIAL IVP ONE (14:58)
--- NOTE | 2018-02-18 16:53 | Internal Med History&Physical ---
Addendum entered and electronically signed by Martha Conroy CNP 02/18/18 17:23: DVT prophylaxis- Heparin BID SQ Original Note: <Martha Conroy - Last Filed: 02/18/18 16:50> Date of Encounter: 02/18/18 Time of Encounter: 16:15 Internal Medicine - H&P: HPI Chief complaint: Abdominal pain, diarrhea Admitted From: Home Plans for Post Hospital Care: Home History of present illness: Ms. Moreno is a 82 year old female with past medical history of dyslipidemia, hypertension, obesity, GERD, diverticulitis, diabetes type 2. Patient presented to the emergency department for complaint of worsening abdominal pain and diarrhea. Patient was admitted 3 weeks ago for diverticulitis and was transitioned from IV to oral antibiotics, patient states that she is not getting any better. She reports diffuse abdominal pain, frequent, watery diarrhea, and nausea. She denies any dizziness, vision changes, chest pain or shortness of breath. She was admitted for observation status and will be treated with IV antibiotics, IV fluids, and will have a GI consult. Patient is at risk for deterioration and dehydration. Time spent with patient approximately 20-30 minutes. Past Med Surg Social Fam HX - Past Medical History Medical history: aortic aneurysm, arthritis, coronary artery disease, diabetes, GERD, GI bleed, hyperlipidemia, hypertension, osteoporosis, other Additional medical history: diverticulitis Psychiatric history: anxiety, depression, panic disorder, other - Past Surgical History Surgical History: orthopedic, other, other Additional surgical history: carpal tunnel, knee scope - Social History Smoking Status: Never smoker Smokeless Tobacco Status: No Alcohol use: none Drug use: none - Family History Mother Living Status: Hx Family Cardiac Disorders: Yes Hx Family Endocrine Disorder: Yes (DM) Father Living Status: Still Living Hx Family Cardiac Disorders: Yes Internal Medicine - H&P: Meds Cholecalciferol (D-3) [Vitamin D] 2,000 unit PO DAILY 01/31/16 [History] Lisinopril [Zestril] 40 mg PO DAILY 01/31/16 [History] Metoprolol [Lopressor] 50 mg PO BID 01/31/16 [History] amLODIPine [Norvasc] 5 mg PO BID 01/31/16 [History] clonazePAM [Klonopin] 0.25 - 0.5 mg PO BID PRN 01/31/16 [History] Tramadol HCl [Ultram] 50 mg PO BID PRN 7 Days #16 tablet 02/07/18 [Rx] Ciprofloxacin [Cipro] 500 mg PO BID #20 tablet 02/11/18 [Rx] Ondansetron ODT [Zofran ODT] 4 mg SL Q6HR #10 tab.rapdis 02/11/18 [Rx] metroNIDAZOLE [Flagyl] 500 mg PO BID #20 tablet 02/11/18 [Rx] Gabapentin [Neurontin] 300 mg PO HS 02/18/18 [History] Omeprazole [PriLOSEC] 40 mg PO BID 02/18/18 [History] Quetiapine Fumarate [Seroquel] 50 mg PO HS 02/18/18 [History] Sertraline [Zoloft] 150 mg PO DAILY 02/18/18 [History] Sucralfate [Carafate] 1 gm PO BID 02/18/18 [History] 3 Allergy/AdvReac Type Severity Reaction Status Date / Time codeine Allergy See Verified 02/03/18 20:29 Comments diazepam [From Valium] Allergy See Verified 02/03/18 20:29 Comments Penicillins Allergy See Verified 02/03/18 20:29 Comments Sulfa (Sulfonamide Allergy See Verified 02/03/18 20:29 Antibiotics) Comments diphenhydramine AdvReac Vomiting Verified 02/03/18 20:29 [From Benadryl] All Systems PM: A 10-system review of systems was performed and is negative for pertinent findings except as documented above in the HPI. - Constitutional Constitutional: anorexia, no chills, no fatigue, no falls, no lethargy, no weakness - EENT Eyes: no blurry vision, no irritation, no loss of vision, no photophobia Ears: no decreased hearing, no ear pain Nose, mouth and throat: no dry mouth, no facial pain, no hoarseness, no mouth pain, no nasal congestion, no nasal discharge, no sinus pain, no sinus pressure - Cardiovascular Cardiovascular ROS IM: no chest pain, no diaphoresis, no dyspnea, no dyspnea on exertion, no edema, no lightheadedness, no palpitations, no syncope - Respiratory Respiratory: no cough, no dyspnea on exertion, no wheezing, no stridor, no chest congestion - Gastrointestinal Gastrointestinal: change in stool character, cramping, diarrhea, heartburn, loose stools, nausea, no bloating, no constipation, no hematemesis, no hematochezia, no vomiting - Genitourinary Genitourinary: no dysuria, no flank pain, no urinary frequency, no urinary hesitancy, no urinary incontinence, no urinary urgency - Musculoskeletal Musculoskeletal ROS IM: no back pain, no muscle cramps, no muscle weakness, no numbness, no tingling - Integumentary Integumentary IM: no new lesions, no rash - Neurological Neurological ROS: no dizziness, no frequent falls, no headache(s), no numbness, no weakness - Constitutional Vitals: Temp Pulse Resp BP Pulse Ox 98.4 F 74 17 130/79 95 02/18/18 15:30 02/18/18 15:30 02/18/18 15:30 02/18/18 15:30 02/18/18 15:30 General appearance: Present: cooperative, A&O X 3, pleasant, no acute distress, obese, answers questions appropriately Exam: As above - Head Head exam: Present: atraumatic, normal inspection, normocephalic - Eye Eye exam: Present: EOMI, normal appearance, conjuntiva pink, sclera anicteric - Neck Neck exam general surgery: Present: supple, trachea midline. Absent: lymphadenopathy, tenderness - Respiratory Respiratory exam: Present: CTAB. Absent: accessory muscle use, rales, respiratory distress, rhonchi, wheezes - Cardiovascular Cardiovascular exam: Present: RRR, +S1, +S2. Absent: diastolic murmur, gallop, rubs, systolic murmur - GI/Abdominal GI/Abdominal exam: Present: hyperactive bowel sounds, soft. Absent: distended, hepatomegaly, pulsatile mass, tenderness - Extremities Exam Extremities exam: Present: normal capillary refill, normal inspection, warm, radial pulses palpable and symmetrical. Absent: calf tenderness, cyanotic, pedal edema, tenderness - Neurological Exam Neurological exam: Present: alert, oriented X3, no focal deficits. Absent: facial droop, speech deficit - Skin Skin exam: Present: dry, intact, normal color, warm. Absent: rash Internal Med - H&P Results - Labs CBC & Chem 7: 02/18/18 11:14 02/18/18 11:14 - Assessment and plan (1) Diverticulitis Current Visit: Yes Status: Acute Assessment and plan: Pt admitted for diverticulitis 3 weeks ago. She was on IV antibiotics while here , was transitioned to po and has been home and states that she is not improving. Pain continues. CT abdomen shows improving diverdiculitis. Continue IV Cipro and IV Flagyl Pain control GI consultation. Abdomen/Pelvis CT 02/18/18 10:57 IMPRESSION: Interval improvement in findings of acute uncomplicated sigmoid diverticulitis. Unchanged left renal angiomyolipomas. D/ / Flaco Aguirre MD / Flaco Aguirre MD Interpreting Provider: Flaco Aguirre MD (2) Abdominal pain Current Visit: Yes Status: Acute Assessment and plan: Plan as above. Describes as burning and diffuse. IV Protonix Qualifiers: Abdominal location: generalized Qualified Code(s): R10.84 - Generalized abdominal pain (3) Coronary artery disease, non-occlusive Current Visit: Yes Status: Chronic Assessment and plan: Chronic. Continue home medications. Continue Norvasc, beta merlyn when verified by pharmacy. (4) Diet-controlled type 2 diabetes mellitus Current Visit: Yes Status: Chronic Assessment and plan: Chronic. A1c is 5.6% in November. Patient does not take by mouth medications. Monitor serum glucose with chemistry. (5) Hypertension Current Visit: No Status: Chronic Qualifiers: Hypertension type: essential hypertension Qualified Code(s): I10 - Essential (primary) hypertension (6) Obesity (BMI 30-39.9) Current Visit: Yes Status: Chronic Assessment and plan: Chronic. Continue to encourage lifestyle modification. (7) GERD (gastroesophageal reflux disease) Current Visit: Yes Status: Resolved Assessment and plan: Chronic. Patient takes Prilosec at home. Patient reports upper abdominal burning. Protonix 40 mg IV daily. Qualifiers: Esophagitis presence: without esophagitis Qualified Code(s): K21.9 - Gastro -esophageal reflux disease without esophagitis (8) Nausea Current Visit: Yes Status: Resolved Assessment and plan: Patient reports nausea for the last 3 weeks. No vomiting. Zofran 4 mg IV every 6 hours as needed. (9) Diarrhea Current Visit: Yes Status: Acute Assessment and plan: Patient reports intermittent diarrhea for the last 3 weeks, worse over the last week. Patient reports that it is watery diarrhea several times a day. Patient has been treated with IV and oral antibiotics for diverticulitis, will check for C. difficile. Patient has no leukocytosis or fever. GI consultation entered and pending, they will need to be called in the morning. IV Protonix GI infectious panel ordered and pending. Qualifiers: Diarrhea type: unspecified type Qualified Code(s): R19.7 - Diarrhea, unspecified - Time Spent With Patient Total time spent is greater than 50% in coordination of care (as documented) at patient's floor/unit and/or counseling patient: 25 - 35 minutes <Zac Prajapati - Last Filed: 02/18/18 17:33> Date of Encounter: 02/18/18 Internal Medicine - H&P: HPI History of present illness: Ms. Moreno is a 82 year old female All Systems PM: A 10-system review of systems was performed and is negative for pertinent findings except as documented above in the HPI. - Constitutional Vitals: Temp Pulse Resp BP Pulse Ox 98.4 F 74 17 130/79 95 02/18/18 15:30 02/18/18 15:30 02/18/18 15:30 02/18/18 15:30 02/18/18 15:30 Internal Med - H&P Results - Labs CBC & Chem 7: 02/18/18 11:14 02/18/18 11:14 - Assessment and plan (1) Hypertension Current Visit: No Status: Chronic Qualifiers: Hypertension type: essential hypertension Qualified Code(s): I10 - Essential (primary) hypertension (2) Coronary artery disease, non-occlusive Current Visit: Yes Status: Chronic (3) Diet-controlled type 2 diabetes mellitus Current Visit: Yes Status: Chronic (4) Obesity (BMI 30-39.9) Current Visit: Yes Status: Chronic (5) Nausea Current Visit: Yes Status: Resolved (6) GERD (gastroesophageal reflux disease) Current Visit: Yes Status: Resolved Qualifiers: Esophagitis presence: without esophagitis Qualified Code(s): K21.9 - Gastro -esophageal reflux disease without esophagitis (7) Abdominal pain Current Visit: Yes Status: Acute Qualifiers: Abdominal location: generalized Qualified Code(s): R10.84 - Generalized abdominal pain (8) Diverticulitis Current Visit: Yes Status: Acute (9) Diarrhea Current Visit: Yes Status: Acute Qualifiers: Diarrhea type: unspecified type Qualified Code(s): R19.7 - Diarrhea, unspecified - Time Spent With Patient Total time spent is greater than 50% in coordination of care (as documented) at patient's floor/unit and/or counseling patient: - Attending Attestation Patient seen and examined with nurse practitioner, agree with history and physical assessment and plan. Patient presented with worsening abdominal pain and diarrhea and was recently admitted for diverticulitis. Imaging today revealed improvement of diverticulitis and the patient has been afebrile with no leukocytosis. I suspect that the patient's developing diarrhea secondary to antibiotics. We will continue IV antibiotics and consult GI hopefully discontinue soon pending their recommendation. On exam the patient has hyperactive bowel sounds however has no guarding rebound or rigidity. We will also check stool studies. Patient will be placed in observation for diverticulitis and diarrhea.
[2018-02-18] MEDS ORDERED: Acetaminophen 325 MG TABLET PO PRN (17:14)
[2018-02-18] MEDS ORDERED: Naloxone 0.4 MG/ML INJ IVP PRN (17:14)
[2018-02-18] MEDS ORDERED: 0.9 % Sodium Chloride 1,000 ML IVC SCH (17:15)
[2018-02-18] MEDS: Ondansetron 4 MG/2 ML VIAL IVP SCH ×2 (17:47→23:04)
[2018-02-18] MEDS: Pantoprazole 40 MG VIAL IVP SCH (17:47)
[2018-02-18] MEDS: *HR* Heparin 5,000 UNIT/ML VIAL SQ SCH (17:47)
[2018-02-18] MEDS ORDERED: hydrOXYzine pamoate 25 MG CAPSULE PO ONE (20:52)
[2018-02-18] MEDS: MetroNIDAZOLE 500 MG/100 ML 500 MG/100 ML BAG IVPB SCH (23:15)
[2018-02-19 05:34] LABS: Basophils % 0.9 %; Eosinophils # 0.1 K/mcL (0.0-0.6); Hematocrit 35.5 % (35.3-44.9); Hemoglobin 11.9 g/dL (11.5-15.4); Immature Granulocytes % 0.2 % (0-4); Lymphocytes # 1.3 K/mcL (0.6-4.6); Lymphocytes % 29.6 %; Mean Corpuscular HGB Conc 33.5 g/dL (31.6-35.5); Mean Corpuscular Hemoglobin 31.2 pg (28.0-33.3); Mean Corpuscular Volume 93.2 fL (83.0-100.0); Monocytes # 0.4 K/mcL (0.0-1.3); Monocytes % 9.3 %; Neutrophils # 2.6 K/mcL (1.6-8.9); Platelet Count 187 K/mcL (140-400); Red Blood Count 3.81 M/mcL (3.82-4.97); Red Cell Distribution Width 13.5 % (11.5-14.5)
[2018-02-19 05:46] LABS: BUN/Creatinine Ratio 7 (6-26); Blood Urea Nitrogen 5 mg/dL (8-23); Calcium 8.4 mg/dL (8.6-10.3); Carbon Dioxide 24 mEq/L (23-29); Chloride 100 mEq/L (98-107); Glucose 109 mg/dL (70-105); Osmolality,Calculated 268 (280-300); Potassium 3.5 mEq/L (3.5-5.1); Sodium 130 mEq/L (136-145); eGFR For Non-African Americans > 60 (> 60)
[2018-02-19] MEDS: Ondansetron 4 MG/2 ML VIAL IVP SCH ×3 (06:26→18:23)
[2018-02-19] MEDS: *HR* Heparin 5,000 UNIT/ML VIAL SQ SCH ×2 (06:26→18:23)
[2018-02-19 06:56] LABS: Platelet Estimate Normal (Normal)
[2018-02-19] MEDS: Pantoprazole 40 MG VIAL IVP SCH (10:07)
[2018-02-19] MEDS: MetroNIDAZOLE 500 MG/100 ML 500 MG/100 ML BAG IVPB SCH ×2 (10:07→18:22)
--- NOTE | 2018-02-19 11:39 | Internal Med Progress Note ---
Hospitalist Progress Note - Encounter Date of Encounter: 02/19/18 Time of Encounter: 11:36 - Subjective Interval History: Patient seen and evaluated at bedside, reports doing better but still has some generalized burning sensation in her abdomen. Reports that she has had only one small loose stool bowel movement today. Denies nausea, vomiting fevers or chills. - Exam Vitals: Temp Pulse Resp BP Pulse Ox 98.1 F 83 17 110/68 94 02/19/18 07:05 02/19/18 07:05 02/19/18 07:05 02/19/18 07:05 02/19/18 07:05 Exam: General: Alert and oriented 4. In no acute distress. Skin: Multiple ecchymotic lesions and the heparin insertion site in the abdominal area. HEENT:EOM, pupils equal, round and reactive. Cardiovascular: RRR, Normal S1 & S2, no rubs, murmurs or gallops. Lungs: Clear to auscultation bilaterally, no wheezes, rales or crackles. Abdomen: Obese, Soft, MIld tenderness to deep palpation in the LLQ and umbilical area, no rigidity or guarding. Extremities: no edema or tenderness, no joint swelling or clubbing. Neurological: Normal cognition and motor skills. CN II-XII intact. Rest of the physical exam is non contributory - Assessment and Plan (1) Diverticulitis Current Visit: Yes Status: Acute Assessment and Plan: Patient complaining of burning abdominal pain. Has had 1 episode of loose stool today. Has been having 1-2 BM of loose stool a day. No fevers or chills. CT AB/Pelvis W?O IV contrast: Interval improvement in findings of acute uncomplicated sigmoid diverticulitis. Plan continue patient on metronidazole 500mg/IV Q8HRs only, as patient is allergic to sulfa and Penicillins Discontinue ciprofloxacin as patient reports an "allergic" type reaction to the medication, described as generalized burning sensation GI has been consulted, will follow recommendations Clear liquid diet F/U C.Diff studies Will start patient on gentle IV hydration. with D5/0.45%@60mls/hr Continue Ondansetron 4mg/IV Q6HR PRN for nausea and vomiting. (2) Diarrhea Current Visit: Yes Status: Acute Assessment and Plan: Plan of care as above. (3) Abdominal pain Current Visit: Yes Status: Resolved Assessment and Plan: Plan of care as above. (4) Hypertension Current Visit: No Status: Chronic Assessment and Plan: BP well controlled patient on Amlodipine 5mg/PO daily. Will re-start metoprolol at a lower dose 12.5mg/PO BID. Will resume home medication. (5) Coronary artery disease, non-occlusive Current Visit: Yes Status: Chronic Assessment and Plan: No on aspirin or statin. Consider adding aspirin 81mg/PO daily. f/u lipid panel. (6) Diet-controlled type 2 diabetes mellitus Current Visit: Yes Status: Chronic Assessment and Plan: Blood sugar well controlled. Patient on clear liquids, when diet is advanced, recommended diabetic diet. (7) Obesity (BMI 30-39.9) Current Visit: Yes Status: Chronic (8) GERD (gastroesophageal reflux disease) Current Visit: Yes Status: Resolved Assessment and Plan: Patient is on pantoprazole 40 mg IV daily (9) Nausea Current Visit: Yes Status: Resolved Assessment and Plan: On ondansetron 4mg/IV Q6HR PRN for nausea and vomiting. DVT Prophylaxis: On heparin 5000 units subcutaneous 12 hours for DVT prophylaxis. - Summary of Assessment and Plan Summary of Assessment and Plan: Patient to remain hospitalized due to abdominal pain. Patient is not tolerating PO diet. ON a clear liquid diet. - Time Spent with Patient Total time spent is greater than 50% in coordination of care (as documented) at patient's floor/unit and/or counseling patient: Greater than 35 minutes Plan of Care Discussed with: patient (and the nurse.) Internal Medicine: Result - Labs CBC & Chem 7: 02/19/18 04:57 02/19/18 04:57 Labs: Short CBC 02/19/18 Range/Units 04:57 WBC 4.5 (4.3-11.1) K/mcL Hgb 11.9 (11.5-15.4) g/dL Hct 35.5 (35.3-44.9) % Plt Count 187 (140-400) K/mcL Neutrophils # 2.6 (1.6-8.9) K/mcL BMP 02/19/18 04:57 Sodium 130 L Potassium 3.5 Chloride 100 Carbon Dioxide 24 BUN 5 L Creatinine 0.70 Glucose 109 H Calcium 8.4 L Consult Discharge Plan - Plan Referrals: Yandila,Reggina W, DO [Primary Care Provider] - (2) Diarrhea Qualifiers: Diarrhea type: unspecified type Qualified Code(s): R19.7 - Diarrhea, unspecified (3) Abdominal pain Qualifiers: Abdominal location: generalized Qualified Code(s): R10.84 - Generalized abdominal pain (4) Hypertension Qualifiers: Hypertension type: essential hypertension Qualified Code(s): I10 - Essential (primary) hypertension (8) GERD (gastroesophageal reflux disease) Qualifiers: Esophagitis presence: without esophagitis Qualified Code(s): K21.9 - Gastro- esophageal reflux disease without esophagitis
--- NOTE | 2018-02-19 12:18 | Gastroenterology Consult Note ---
<Heladio Koch - Last Filed: 02/19/18 12:10> Date of Encounter: 02/19/18 Time of Encounter: 10:35 - Assessment and plan (1) Diverticulitis Current Visit: Yes Status: Acute Assessment and plan: CT A/P shows interval improvement in findings of acute uncomplicated sigmoid diverticulitis. Patient with allergies to PCN, Sulfa, and apparently has an allergy to Cipro as well (burning sensation). Continue Flagyl. Will discuss with Dr. Hernández. Recommend daily fiber supplement. - Time Spent With Patient Total time spent is greater than 50% in coordination of care (as documented) at patient's floor/unit and/or counseling patient: GI History of Present Illness - Data of Consult Patient: known to practice within the last 3 years Consult date: 02/19/18 Requesting Physician: Kirby Banda MD - Consult Narrative Reason for consult: Abdominal pain History of present illness: Ms. Moreno is a 82 year old female with PMHx of aortic aneurysm, arthritis, CAD, DM, GERD, GI bleed, HLD, HTN, osteoporosis who presented to the ED with complaints of worsening abdominal pain and diarrhea. Patient was admitted 3 weeks ago for diverticulitis and was transitioned from IV to oral antibiotics, patient states that she is not getting any better. She reports diffuse abdominal pain, frequent, watery diarrhea, and nausea. CT A/P shows interval improvement in findings of acute uncomplicated sigmoid diverticulitis. She was started on IV Cipro and IV Flagyl. Diarrhea Procedures: EGD 04/23/2017 Dr. Hernández: Esophageal stenosis which was dilated. EGD 12/29/2008 Dr. Jarrett: Reflux esophagitis, negative for Gardner's. NSAIDs: None Anticoagulation: None Past Med Surg Social Fam HX - Past Medical History Medical history: aortic aneurysm, arthritis, coronary artery disease, diabetes, GERD, GI bleed, hyperlipidemia, hypertension, osteoporosis, other Additional medical history: diverticulitis Psychiatric history: anxiety, depression, panic disorder, other - Past Surgical History Surgical History: orthopedic, other, other Additional surgical history: carpal tunnel, knee scope - Social History Smoking Status: Never smoker Smokeless Tobacco Status: No Alcohol use: none Drug use: none - Family History Mother Living Status: Hx Family Cardiac Disorders: Yes Hx Family Endocrine Disorder: Yes (DM) Father Living Status: Still Living Hx Family Cardiac Disorders: Yes - Gastrointestinal Gastrointestinal: Present: as per HPI - Constitutional Constitutional: as per HPI - EENT Eyes: as per HPI Ears: Present: as per HPI Nose, mouth and throat: Present: as per HPI - Cardiovascular Cardiovascular ROS: Present: as per HPI - Respiratory Respiratory IM: Present: as per HPI - Genitourinary Genitourinary: Absent: change in color, Urinary frequency - Neurological ROS Neurological GI: Present: as per HPI - Hematologic/Lymphatic Hematologic/Lymphatic pediatric: Present: as per HPI - Musculoskeletal Musculoskeletal ROS GI: Present: as per HPI - Integumentary Integumentary GI: Present: as per HPI - Psychiatric ROS Psychiatric GI: Present: as per HPI - Endocrine Endocrine IM: Present: as per HPI - Constitutional Vitals: Temp Pulse Resp BP Pulse Ox 98.9 F 64 17 126/76 98 02/19/18 11:41 02/19/18 11:41 02/19/18 11:41 02/19/18 11:41 02/19/18 11:41 General appearance: Present: cooperative, A&O X 3, no acute distress, answers questions appropriately - Head Head exam: Present: atraumatic, normocephalic - Eye Eye exam: Present: normal appearance, sclera anicteric - ENT ENT exam: Present: mucous membranes dry - Neck Neck exam general surgery: Present: normal inspection, trachea midline - Respiratory Respiratory exam: Present: decreased breath sounds, CTAB. Absent: rales, rhonchi - Cardiovascular Cardiovascular exam: Present: RRR, +S1, +S2 - GI/Abdominal GI/Abdominal exam: Present: soft, tenderness (LLQ tenderness with palpation), no peritoneal signs. Absent: distended, firm, guarding - Rectal Rectal exam: Present: deferred - Extremities Exam Extremities exam: Present: warm - Neurological Exam Neurological exam: Present: no focal deficits - Psychiatric Psychiatric exam: Present: normal affect, normal mood - Skin Skin exam: Present: dry, intact, normal color, warm Results - Labs CBC & Chem 7: 02/19/18 04:57 02/19/18 04:57 Labs: Last Result Calcium 8.4 mg/dL (8.6-10.3) L 02/19/18 04:57 Troponin I < 0.03 ng/mL (< 0.04) 02/18/18 11:14 Entire Visit Hgb 11.9 g/dL (11.5-15.4) 02/19/18 04:57 Hct 35.5 % (35.3-44.9) 02/19/18 04:57 Total Bilirubin 0.3 mg/dL (0.3-1.0) 02/18/18 11:14 AST 19 Units/L (13-39) 02/18/18 11:14 ALT 19 Units/L (7-52) 02/18/18 11:14 Lipase 43 Units/L (11-82) 02/18/18 11:14 Consult Discharge Plan - Plan Referrals: Cindy Benitez DO [Primary Care Provider] - <Sean Hernández - Last Filed: 02/19/18 12:57> Date of Encounter: 02/19/18 - Time Spent With Patient Total time spent is greater than 50% in coordination of care (as documented) at patient's floor/unit and/or counseling patient: GI History of Present Illness - Data of Consult Requesting Physician: Kirby Banda MD - Consult Narrative History of present illness: Ms. Moreno is a 82 year old female - Constitutional Vitals: Temp Pulse Resp BP Pulse Ox 98.9 F 64 17 126/76 98 02/19/18 11:41 02/19/18 11:41 02/19/18 11:41 02/19/18 11:41 02/19/18 11:41 Results - Labs CBC & Chem 7: 02/19/18 04:57 02/19/18 04:57 Labs: Last Result Calcium 8.4 mg/dL (8.6-10.3) L 02/19/18 04:57 Troponin I < 0.03 ng/mL (< 0.04) 02/18/18 11:14 Entire Visit Hgb 11.9 g/dL (11.5-15.4) 02/19/18 04:57 Hct 35.5 % (35.3-44.9) 02/19/18 04:57 Total Bilirubin 0.3 mg/dL (0.3-1.0) 02/18/18 11:14 AST 19 Units/L (13-39) 02/18/18 11:14 ALT 19 Units/L (7-52) 02/18/18 11:14 Lipase 43 Units/L (11-82) 02/18/18 11:14 - Attending Attestation Patient admitted with diarrhea. Had recent acute sigmoid diverticulitis. Possibiity of C Difficile high. Treat empirically till the stool results. I have personally performed a face to face evaluation on this patient. I have reviewed and agree with the care plan. History and Exam by me shows:
[2018-02-19] MEDS: D5% in 0.45% NACL 1,000 ML IVC SCH (13:37)
[2018-02-19 14:17] LABS: Adenovirus F 40/41 PCR Not detected (Not detect); Astrovirus PCR Not detected (Not detect); C.difficile Toxin A/B by PCR Not detected (Not detect); Campylobacter by PCR Not detected (Not detect); Cryptosporidium by PCR Not detected (Not detect); Cyclospora cayetanensis PCR Not detected (Not detect); E. coli O157 by PCR Not detected (Not detect); Entamoeba histolytica PCR Not detected (Not detect); Enteroaggregative E.coli(EAEC) Not detected (Not detect); Enteropathogenic E.coli(EPEC) Not detected (Not detect); Enterotoxigenic E.coli (ETEC) Not detected (Not detect); Giardia lamblia PCR Not detected (Not detect); Norovirus GI/GII PCR Not detected (Not detect); Plesiomonas shigelloides PCR Not detected (Not detect); Rotavirus A PCR Not detected (Not detect); Salmonella PCR Not detected (Not detect); Sapovirus PCR Not detected (Not detect); Shig/EnteroinvasiveE coli EIEC Not detected (Not detect); Shigalike tox-prod E coli STEC Not detected (Not detect); Vibrio PCR Not detected (Not detect); Vibrio cholerae PCR Not detected (Not detect); Yersinia enterocolitica PCR Not detected (Not detect)
[2018-02-19] MEDS: traMADol 50 MG TABLET PO PRN (19:34)
[2018-02-19] MEDS: clonazePAM 0.5 MG TABLET PO PRN (21:32)
[2018-02-20] MEDS: MetroNIDAZOLE 500 MG/100 ML 500 MG/100 ML BAG IVPB SCH ×4 (00:15→23:40)
[2018-02-20] MEDS: Ondansetron 4 MG/2 ML VIAL IVP SCH ×2 (00:15→05:22)
[2018-02-20] MEDS: *HR* Heparin 5,000 UNIT/ML VIAL SQ SCH ×2 (05:22→17:05)
[2018-02-20 06:29] LABS: Basophils % 0.7 %; Eosinophils # 0.1 K/mcL (0.0-0.6); Hematocrit 34.2 % (35.3-44.9); Immature Granulocytes % 0.5 % (0-4); Lymphocytes # 1.4 K/mcL (0.6-4.6); Lymphocytes % 22.1 %; Mean Corpuscular HGB Conc 32.2 g/dL (31.6-35.5); Mean Corpuscular Hemoglobin 30.3 pg (28.0-33.3); Mean Corpuscular Volume 94.2 fL (83.0-100.0); Mean Platelet Volume 9.2 fL (9.4-12.4); Monocytes # 0.4 K/mcL (0.0-1.3); Monocytes % 7.2 %; Neutrophils # 4.1 K/mcL (1.6-8.9); Platelet Count 208 K/mcL (140-400); Red Blood Count 3.63 M/mcL (3.82-4.97); Red Cell Distribution Width 13.8 % (11.5-14.5); Segmented Neutrophils % 67.5 %
[2018-02-20 06:56] LABS: Chol/HDL Ratio 2.8 (0-4.9); Magnesium 1.7 mg/dL (1.6-2.6); Phosphorous 3.7 mg/dL (2.7-4.5)
[2018-02-20 06:57] LABS: BUN/Creatinine Ratio 6 (6-26); Blood Urea Nitrogen 4 mg/dL (8-23); Calcium 8.7 mg/dL (8.6-10.3); Carbon Dioxide 25 mEq/L (23-29); Chloride 102 mEq/L (98-107); Glucose 103 mg/dL (70-105); Osmolality,Calculated 273 (280-300); Potassium 3.7 mEq/L (3.5-5.1); Sodium 133 mEq/L (136-145); eGFR For Non-African Americans > 60 (> 60)
[2018-02-20] MEDS: amLODIPine 5 MG TABLET PO SCH (09:25)
[2018-02-20] MEDS: Pantoprazole 40 MG VIAL IVP SCH (09:25)
[2018-02-20] MEDS: traMADol 50 MG TABLET PO PRN ×2 (09:40→19:05)
[2018-02-20] MEDS: D5% in 0.45% NACL 1,000 ML IVC SCH (10:38)
[2018-02-20] MEDS ORDERED: Ondansetron 4 MG/2 ML VIAL IVP PRN (11:34)
--- NOTE | 2018-02-20 11:35 | Internal Med Progress Note ---
Hospitalist Progress Note - Encounter Date of Encounter: 02/20/18 Time of Encounter: 11:00 - Subjective Interval History: Patient is seen today resting comfortably in bed she still continues to have minimal to moderate amount of abdominal cramping and bloating. However she states that she is hungry and would like to have her diet advanced to a soft from a full liquid. States that she has had one watery diarrhea today. - Exam Vitals: Temp Pulse Resp BP Pulse Ox 98.6 F 72 18 142/85 93 02/20/18 10:49 02/20/18 10:49 02/20/18 10:49 02/20/18 10:49 02/20/18 10:49 Exam: See above - Assessment and Plan (1) Hypertension Current Visit: No Status: Chronic Assessment and Plan: Blood pressure is stable we will continue with her medications per list (2) Coronary artery disease, non-occlusive Current Visit: Yes Status: Chronic Assessment and Plan: Hyperlipidemia is well controlled with triglycerides of 87 cholesterol is 125 LDL is 64 and HDL is 44 all within normal limits we will continue to encourage upon discharge low-cholesterol diet and daily exercise and continuation of any medications (3) Diet-controlled type 2 diabetes mellitus Current Visit: Yes Status: Chronic Assessment and Plan: Patient denies that she is diabetic, she reports that she has no history of diabetes and takes no medications. Glucose was mildly elevated upon admission through the emergency room at 116 it is normalized down to 103 fasting today. Review of past history does not show any history of diabetes (4) Obesity (BMI 30-39.9) Current Visit: Yes Status: Chronic Assessment and Plan: 73.4 kg #160 moderate obesity d/t excess calorie intake (5) Nausea Current Visit: Yes Status: Resolved Assessment and Plan: Patient continues to complain of mild nausea with some abdominal bloating. CT A &P showed the uncomplicated acute sigmoid diverticulitis. GI consult has been completed and recommends continuing medications Flagyl IVP and high fiber supplement. We will continue with her Zofran every 8 hours as needed for nausea (6) GERD (gastroesophageal reflux disease) Current Visit: Yes Status: Resolved Assessment and Plan: Patient is on pantoprazole 40 mg IV daily (7) Abdominal pain Current Visit: Yes Status: Resolved Assessment and Plan: Continues with a chief complaint of mild abdominal bloating and generalized abdominal pain. Bowel sounds are regular 4 quadrants and no masses are appreciated. She does have mild distention and has continued to have the watery diarrhea. We will continue with her Protonix IVP daily at 40 mg (8) Diverticulitis Current Visit: Yes Status: Acute Assessment and Plan: We will continue with the metronidazole as well as Zofran when necessary and Protonix (9) Diarrhea Current Visit: Yes Status: Acute Assessment and Plan: Tolerating clear liquids will add a fiber con 625 mg bid advance diet as tolerated DVT Prophylaxis: On heparin 5000 units subcutaneous 12 hours for DVT prophylaxis. - Summary of Assessment and Plan Summary of Assessment and Plan: Mrs. Moreno is a 52-year-old female who was admitted with diarrhea and abdominal pain and bloating, CT scan is evidence of the uncomplicated sigmoid diverticulitis, continues on IV Flagyl. Reports that she has allergies to penicillin sulfa and Cipro. She was evaluated by gastroenterology with recommendations of continuing the IV Flagyl for the diarrhea, adding a fiber supplement. FiberCon has been added to her daily intake of 625 mg twice a day per gastroenterology recommendations. Stool cultures Negative for any pathology. She is resting quietly in bed in no acute distress. Will continue wit current medications, and monitoring daily . If remains stable will probably be able to be discharged tomorrow . - Time Spent with Patient Total time spent is greater than 50% in coordination of care (as documented) at patient's floor/unit and/or counseling patient: less than 15 minutes Plan of Care Discussed with: patient Internal Medicine: Result - Labs CBC & Chem 7: 02/20/18 05:18 02/20/18 05:18 Labs: Short CBC 02/20/18 Range/Units 05:18 WBC 6.1 (4.3-11.1) K/mcL Hgb 11.0 L (11.5-15.4) g/dL Hct 34.2 L (35.3-44.9) % Plt Count 208 (140-400) K/mcL Neutrophils # 4.1 (1.6-8.9) K/mcL BMP 02/20/18 05:18 Sodium 133 L Potassium 3.7 Chloride 102 Carbon Dioxide 25 BUN 4 L Creatinine 0.69 Glucose 103 Calcium 8.7 Consult Discharge Plan - Plan Referrals: Cindy Benitez DO [Primary Care Provider] - 02/26/18 9:45 am () (1) Hypertension Qualifiers: Hypertension type: essential hypertension Qualified Code(s): I10 - Essential (primary) hypertension (6) GERD (gastroesophageal reflux disease) Qualifiers: Esophagitis presence: without esophagitis Qualified Code(s): K21.9 - Gastro- esophageal reflux disease without esophagitis (7) Abdominal pain Qualifiers: Abdominal location: generalized Qualified Code(s): R10.84 - Generalized abdominal pain (9) Diarrhea Qualifiers: Diarrhea type: unspecified type Qualified Code(s): R19.7 - Diarrhea, unspecified
[2018-02-20] MEDS: clonazePAM 0.5 MG TABLET PO PRN (19:47)
--- NOTE | 2018-02-21 00:32 | Electrocardiograph Report ---
[facility] [employer] Test Date: 2018-02-18 Pat Name: Christina Moreno Department: EXAM2 Room: 3B33 Gender: F [employer]: : 1935 Requested By: Radha Zimmer Order Number: [id number] Reading MD: Cindy Benitez Measurements Intervals [place] Rate: 65 P: 13 NC: 191 QRS: 30 QRSD: 95 T: 81 QT: 422 QTc: 439 Interpretive Statements Age not entered, assumed to be 50 years old for purpose of ECG interpretation Sinus rhythm Electronically Signed On 02-21-2018 0:31:40 EDT by Cindy Benitez
[2018-02-21 05:17] LABS: Basophils % 0.8 %; Eosinophils # 0.2 K/mcL (0.0-0.6); Eosinophils % 4.7 %; Hematocrit 33.9 % (35.3-44.9); Immature Granulocytes % 0.2 % (0-4); Lymphocytes # 1.3 K/mcL (0.6-4.6); Lymphocytes % 27.6 %; Mean Corpuscular HGB Conc 32.4 g/dL (31.6-35.5); Mean Corpuscular Hemoglobin 30.9 pg (28.0-33.3); Mean Corpuscular Volume 95.2 fL (83.0-100.0); Monocytes # 0.5 K/mcL (0.0-1.3); Monocytes % 9.6 %; Neutrophils # 2.7 K/mcL (1.6-8.9); Platelet Count 200 K/mcL (140-400); Red Blood Count 3.56 M/mcL (3.82-4.97); Red Cell Distribution Width 14.1 % (11.5-14.5); Segmented Neutrophils % 57.1 %
[2018-02-21] MEDS: D5% in 0.45% NACL 1,000 ML IVC SCH (05:21)
[2018-02-21] MEDS: *HR* Heparin 5,000 UNIT/ML VIAL SQ SCH (05:22)
[2018-02-21 05:33] LABS: BUN/Creatinine Ratio 6 (6-26); Blood Urea Nitrogen 5 mg/dL (8-23); Calcium 8.4 mg/dL (8.6-10.3); Carbon Dioxide 24 mEq/L (23-29); Chloride 103 mEq/L (98-107); Glucose 98 mg/dL (70-105); Osmolality,Calculated 271 (280-300); Potassium 3.6 mEq/L (3.5-5.1); Sodium 132 mEq/L (136-145); eGFR For Non-African Americans > 60 (> 60)
[2018-02-21] MEDS: amLODIPine 5 MG TABLET PO SCH (08:23)
[2018-02-21] MEDS: MetroNIDAZOLE 500 MG/100 ML 500 MG/100 ML BAG IVPB SCH (08:24)
[2018-02-21] MEDS: Pantoprazole 40 MG VIAL IVP SCH (08:24)
--- NOTE | 2018-02-21 10:39 | Discharge Summary ---
- NOTES TO OUTPATIENT PROVIDER Notes to Outpatient Provider: f/u with PCP within a week. Orders not resulted at time of discharge: Pending orders 02/18/18 17:14 Urinalysis reflex Microscopic [URIN] Stat Date of Encounter: 02/21/18 Time of Encounter: 10:35 - Discharge Diagnosis (1) Hypertension Priority: Secondary Status: Chronic Qualifiers: Hypertension type: essential hypertension Qualified Code(s): I10 - Essential (primary) hypertension (2) Coronary artery disease, non-occlusive Priority: Secondary Status: Chronic (3) Diet-controlled type 2 diabetes mellitus Priority: Secondary Status: Chronic (4) Obesity (BMI 30-39.9) Priority: Secondary Status: Chronic (5) Nausea Priority: Primary Status: Resolved (6) GERD (gastroesophageal reflux disease) Priority: Secondary Status: Resolved Qualifiers: Esophagitis presence: without esophagitis Qualified Code(s): K21.9 - Gastro -esophageal reflux disease without esophagitis (7) Abdominal pain Priority: Primary Status: Resolved Qualifiers: Abdominal location: generalized Qualified Code(s): R10.84 - Generalized abdominal pain (8) Diverticulitis Priority: Primary Status: Acute (9) Diarrhea Priority: Primary Status: Resolved Qualifiers: Diarrhea type: unspecified type Qualified Code(s): R19.7 - Diarrhea, unspecified Hospital course: Mrs. Moreno is a 52-year-old female who was admitted with diarrhea and abdominal pain and bloating, CT scan is evidence of the uncomplicated sigmoid diverticulitis, continues on IV Flagyl. Reports that she has allergies to penicillin sulfa and Cipro. She was evaluated by gastroenterology with recommendations of continuing the IV Flagyl for the diarrhea, adding a fiber supplement. FiberCon has been added to her daily intake of 625 mg twice a day per gastroenterology recommendations. Stool cultures Negative for any pathology. She is symptoms have improved significantly with treatment. Patient will be discharged home today. She was instructed to continue taking Flagyl for 5 more days. Follow-up with PCP as scheduled. Discharge discussed with: patient Time spent discussing smoking cessation with patient: more than 10 minutes - Time Spent with Patient Total time spent providing and/or coordinating discharge services: Greater than 30 minutes - Discharge Medications Prescriptions: Calcium Polycarbophil [Fibercon] 625 mg PO BID #60 tablet Lactobacillus [Culturelle] 1 each PO BID #60 cap.sprink metroNIDAZOLE [Flagyl] 500 mg PO TID #10 tablet Home Medications: Cholecalciferol (D-3) [Vitamin D] 2,000 unit PO DAILY 01/31/16 [History] Lisinopril [Zestril] 40 mg PO DAILY 01/31/16 [History] Metoprolol [Lopressor] 50 mg PO BID 01/31/16 [History] amLODIPine [Norvasc] 5 mg PO BID 01/31/16 [History] clonazePAM [Klonopin] 0.25 - 0.5 mg PO BID PRN 01/31/16 [History] Tramadol HCl [Ultram] 50 mg PO BID PRN 7 Days #16 tablet 02/07/18 [Rx] Ondansetron ODT [Zofran ODT] 4 mg SL Q6HR #10 tab.rapdis 02/11/18 [Rx] Gabapentin [Neurontin] 300 mg PO HS 02/18/18 [History] Omeprazole [PriLOSEC] 40 mg PO BID 02/18/18 [History] Quetiapine Fumarate [Seroquel] 50 mg PO HS 02/18/18 [History] Sertraline [Zoloft] 150 mg PO DAILY 02/18/18 [History] Sucralfate [Carafate] 1 gm PO BID 02/18/18 [History] Calcium Polycarbophil [Fibercon] 625 mg PO BID #60 tablet 02/21/18 [Rx] Lactobacillus [Culturelle] 1 each PO BID #60 cap.sprink 02/21/18 [Rx] metroNIDAZOLE [Flagyl] 500 mg PO TID #10 tablet 02/21/18 [Rx] Allergies/Adverse Reactions: 3 Allergy/AdvReac Type Severity Reaction Status Date / Time codeine Allergy See Verified 02/03/18 20:29 Comments diazepam [From Valium] Allergy See Verified 02/03/18 20:29 Comments Penicillins Allergy See Verified 02/03/18 20:29 Comments Sulfa (Sulfonamide Allergy See Verified 02/03/18 20:29 Antibiotics) Comments diphenhydramine AdvReac Vomiting Verified 02/03/18 20:29 [From Benadryl] Date of admission: 02/18/18 14:30 Primary care physician: Cindy Benitez DO Consults: 02/18/18 17:14 Consult to Gastroenterology [CONS] Routine Consulting Provider: Gastroenterology Saima Reason for Consult: Abdominal pain, nausea, diarrhea. Recent admission for diverticulitis, on po abx and no improvement. Call Completed: No Anticipated date of discharge: 02/21/18 - Constitutional Vitals: Temp Pulse Resp BP Pulse Ox 98 F 72 17 132/75 99 02/21/18 06:53 02/21/18 06:53 02/21/18 06:53 02/21/18 06:53 02/21/18 06:53 General appearance: Present: cooperative, A&O X 3, pleasant, no acute distress, obese, answers questions appropriately Exam: PHYSICAL EXAMINATION: GENERAL APPEARANCE: The patient is alert, oriented and in no acute distress. HEENT: Head is normocephalic. The sinuses are nontender. Pupils are equal and reactive. The nares are patent. Oropharynx clear without lesions. NECK: Supple without lymphadenopathy. HEART: Regular rate and rhythm. LUNGS: No crackles or wheezes are heard. ABDOMEN: Soft, nontender, nondistended with good bowel sounds heard. Inguinal area is normal. EXTREMITIES: Without cyanosis, clubbing or edema. NEUROLOGICAL: Gross nonfocal. SKIN: Warm and dry without any rash. - Patient Status Disposition: Home, Self-Care Condition: Good Functional capacity at discharge: independent ambulation Overall status at discharge: patient is progressing back to baseline - Discharge Instructions Instructions: Diverticulitis (DC) Follow Up With: Cindy Benitez DO [Primary Care Provider] - 02/26/18 9:45 am () Additional Instructions: Follow-up appointments: If there is not an appointment listed below, please call your physician and schedule a follow-up appointment. If you have congestive heart failure and your symptoms return, make an appointment with your physician. Medication List: Carry an up to date list of medications you are taking at all time. We have given you an updated medication list including any new medications that you have been prescribed. Please provide that list to your primary provider Symptoms: If your condition changes or you experience any of the following symptoms, notify your physician immediately: Unusual or worsening pain, fever, persistent nausea and vomiting, bleeding, increase in swelling (especially in your legs), sudden weight gain, extreme dizziness, chest pain, increased drainage or redness from a wound or incision. Go to the emergency department if you experience a problem with breathing. Weights: If you have a history of swelling or shortness of breath, weigh yourself daily and notify your physician if you have a weight gain of two or more pounds in one day or 5 or more pounds in a week. If you experience any of the warning signs for stroke: Sudden numbness or weakness of the face, arm or leg; especially on one side of the body, sudden confusion, trouble speaking or understanding, sudden trouble seeing in one or both eyes, sudden trouble walking, dizziness, loss of balance or coordination, sudden sever headache with no cause; Call 911 or go to the emergency room. Stroke is a medical emergency. Some risk factors for stroke: Age, cigarette smoking, diabetes, excessive alcohol consumption, family history , high blood pressure, overweight, physical inactivity, prior stroke, heart attack, diagnosis of carotid artery stenosis or other artery disease. If you smoke, STOP: Smoking or tobacco use significantly increases your risk of heart and lung disease. Your chance of disease greatly increases if you continue to smoke. For more information, call the [place] tobacco quit line for smoking cessation - QUIT-NOW ( ) - Diet and Activity Activity: increase activity as tolerated Diet: advance to your usual diet
[2018-02-21] MEDS: traMADol 50 MG TABLET PO PRN (11:00)
[2018-02-21 11:11] VITALS: BP 167/89
[2018-02-21] MEDS ORDERED: metroNIDAZOLE 500 MG TABLET PO SCH (15:00)
[2018-02-21] MEDS ORDERED: Lactobacillus 1 EACH CAP.SPRINK PO SCH (21:00)
== END 2018-02-21 11:57 | disposition home or self-care (01) ==
LOC: EMEROOARM 10:47 → 3BNU 10:47 → SUATTDRO 14:30 → 3BNU 15:14
PROVIDERS: ADMIT Internal Medicine; ATTEND Internal Medicine